=== PATIENT | female | born 1995 | race Caucasian/White ===

== ENCOUNTER 2019-06-18 17:26 | Emergency (ER) | payer SELFPAY ==
--- NOTE | 2019-06-18 18:13 | EDM.PDOC ---
ED HPI GENERAL MEDICAL PROBLEM - General Chief Complaint: PARTS CATALOGUER Problem Stated Complaint: 12WEEKS CRAMP Time Seen by Provider: 06/18/19 17:48 Source of Information: Reports: Patient History Limitations: Reports: No Limitations - History of Present Illness INITIAL COMMENTS - FREE TEXT/NARRATIVE: HISTORY AND PHYSICAL: History of present illness: Patient is a 24-year-old female presents to the ED today with concern of lower abdominal pain and . Patient states she is approximately 11-12 weeks along. Patient states she just moved here and does not have an PARTS CATALOGUER established. Patient states she did have an ultrasound early on in with confirmed intrauterine . Patient states she was lifting boxes today and began to have lower abdominal pain/cramping. Patient denies any vaginal bleeding. Patient denies any direct trauma or injury. Patient denies fever, chills, chest pain, shortness of breath, or cough. Denies headache, neck stiff ness, change in vision, syncope, or near syncope. Denies nausea, vomiting, diarrhea, constipation, or dysuria. Has not noted any blood in urine or stool. Patient has been eating and drinking appropriately. Review of systems: As per history of present illness and below otherwise all systems reviewed and negative. Past medical history: As per history of present illness and as reviewed below otherwise noncontributory. Surgical history: As per history of present illness and as reviewed below otherwise noncontributory. Social history: See social history for further information Family history: As per history of present illness and as reviewed below otherwise noncontributory. Physical exam: General: Patient is alert, oriented, and in no acute distress. Patient sitting comfortably on exam table. HEENT: Atraumatic, normocephalic, pupils equal and reactive bilaterally, negative for conjunctival pallor or scleral icterus, mucous membranes moist, TMs normal bilaterally, throat clear, neck supple, nontender, trachea midline. No drooling or trismus noted. No meningeal signs. No hot potato voice noted. Lungs: Clear to auscultation, breath sounds equal bilaterally, chest nontender. Heart: S1S2, regular rate and rhythm without overt murmur Abdomen: Soft, nondistended. Mild suprapubic tenderness. Negative for masses or hepatosplenomegaly. Negative for costovertebral tenderness. Pelvis: Stable nontender. Genitourinary: Deferred. Rectal: Deferred. Skin: Intact, warm, dry. No lesions or rashes noted. Extremities: Atraumatic, negative for cords or calf pain. Neurovascular unremarkable. Neuro: Awake, alert, oriented. Cranial nerves II through XII unremarkable. Cerebellum unremarkable. Motor and sensory unremarkable throughout. Exam nonfocal. Notes: Blood type A negative. Patient continues to deny vaginal bleeding. Discussed the importance for follow-up with an PARTS CATALOGUER provider. Voices understanding and is agreeable to plan of care. Denies any further questions or concerns at this time. Diagnostics: CBC, CMP, UA, hCG, blood type, TVUS Therapeutics: None Prescription: None Impression: Lower abdominal pain and Plan: 1. Please start and/or continue to take your vitamin with folic acid once daily. 2. Tylenol as needed for pain management. This is safe to use in . 3. Follow up with your PARTS CATALOGUER as discussed. Return to the ED as needed and as discussed. Definitive disposition and diagnosis as appropriate pending reevaluation and review of above. Lower Abdomen Pain Score (Numeric/FACES): 4 - Related Data Allergies Allergy/AdvReac Type Severity Reaction Status Date / Time No Known Allergies Allergy Verified 06/18/19 17:42 Home Meds: Home Meds Pnv No.95/Ferrous Fum/Folic AC [ Caplet] 1 each PO DAILY 06/18/19 [ History] Past Medical History HEENT History: Reports: None Cardiovascular History: Reports: None Respiratory History: Reports: None Gastrointestinal History: Reports: None Genitourinary History: Reports: None PARTS CATALOGUER History: Reports: Musculoskeletal History: Reports: None Neurological History: Reports: None Psychiatric History: Reports: Anxiety Endocrine/Metabolic History: Reports: None Hematologic History: Reports: None Immunologic History: Reports: None Oncologic (Cancer) History: Reports: None Dermatologic History: Reports: None - Infectious Disease History Infectious Disease History: Reports: None - Past Surgical History Head Surgeries/Procedures: Reports: None Social & Family History - Tobacco Use Smoking Status *Q: Former Smoker Used Tobacco, but Quit: Yes Month/Year Tobacco Last Used: 2018 - Caffeine Use Caffeine Use: Reports: None - Recreational Drug Use Recreational Drug Use: No ED ROS GENERAL - Review of Systems Review Of Systems: ROS reveals no pertinent complaints other than HPI. ED EXAM, GENERAL - Physical Exam Exam: See Below (see dictation) Course - Vital Signs Last Recorded V/S: Last Vital Signs Temp 37.1 C 06/18/19 17:39 Pulse 83 06/18/19 17:39 Resp BP 107/62 06/18/19 17:39 Pulse Ox 97 06/18/19 17:39 - Orders/Labs/Meds Labs: Laboratory Tests 06/18/19 06/18/19 06/18/19 Range/Units 17:58 17:58 17:58 WBC 11.52 H (4.0-11.0) K/uL RBC 4.01 L (4.30-5.90) M/uL Hgb 12.8 (12.0-16.0) g/dL Hct 37.5 (36.0-46.0) % MCV 93.5 (80.0-98.0) fL MCH 31.9 (27.0-32.0) pg MCHC 34.1 (31.0-37.0) g/dL RDW Std Deviation 41.3 (28.0-62.0) fl RDW Coeff of Robin 12 (11.0-15.0) % Plt Count 249 (150-400) K/uL MPV 9.20 (7.40-12.00) fL Neut % (Auto) 80.4 H (48.0-80.0) % Lymph % (Auto) 13.8 L (16.0-40.0) % Garrett % (Auto) 5.0 (0.0-15.0) % Eos % (Auto) 0.7 (0.0-7.0) % Baso % (Auto) 0.1 (0.0-1.5) % Neut # (Auto) 9.3 H (1.4-5.7) K/uL Lymph # (Auto) 1.6 (0.6-2.4) K/uL Garrett # (Auto) 0.6 (0.0-0.8) K/uL Eos # (Auto) 0.1 (0.0-0.7) K/uL Baso # (Auto) 0.0 (0.0-0.1) K/uL Nucleated RBC % 0.0 /100WBC Nucleated RBCs # 0 K/uL Sodium 138 (136-145) mmol/L Potassium 3.9 (3.5-5.1) mmol/L Chloride 102 (98-107) mmol/L Carbon Dioxide 27.2 (21.0-32.0) mmol/L BUN 10 (7.0-18.0) mg/dL Creatinine 0.6 (0.6-1.0) mg/dL Est Cr Clr Drug Dosing TNP Estimated GFR (MDRD) > 60.0 ml/min Glucose 96 (74-106) mg/dL Calcium 9.2 (8.5-10.1) mg/dL Total Bilirubin 0.2 (0.2-1.0) mg/dL AST 14 L (15-37) IU/L ALT 22 (14-63) IU/L Alkaline Phosphatase 29 L (46-116) U/L Total Protein 6.6 (6.4-8.2) g/dL Albumin 3.3 L (3.4-5.0) g/dL Globulin 3.3 (2.6-4.0) g/dL Albumin/Globulin Ratio 1.0 (0.9-1.6) HCG, Qual (NEG) HCG, Quant 448966.0 mIU/mL Urine Color Urine Appearance Urine pH (5.0-8.0) Ur Specific Crouse (1.001-1.035) Urine Protein (NEGATIVE) mg/dL Urine Glucose (UA) (NEGATIVE) mg/dL Urine Ketones (NEGATIVE) mg/dL Urine Occult Blood (NEGATIVE) Urine Nitrite (NEGATIVE) Urine Bilirubin (NEGATIVE) Urine Urobilinogen (<2.0) EU/dL Ur Leukocyte Esterase (NEGATIVE) Blood Type A NEGATIVE 06/18/19 06/18/19 Range/Units 17:58 19:35 WBC (4.0-11.0) K/uL RBC (4.30-5.90) M/uL Hgb (12.0-16.0) g/dL Hct (36.0-46.0) % MCV (80.0-98.0) fL MCH (27.0-32.0) pg MCHC (31.0-37.0) g/dL RDW Std Deviation (28.0-62.0) fl RDW Coeff of Robin (11.0-15.0) % Plt Count (150-400) K/uL MPV (7.40-12.00) fL Neut % (Auto) (48.0-80.0) % Lymph % (Auto) (16.0-40.0) % Garrett % (Auto) (0.0-15.0) % Eos % (Auto) (0.0-7.0) % Baso % (Auto) (0.0-1.5) % Neut # (Auto) (1.4-5.7) K/uL Lymph # (Auto) (0.6-2.4) K/uL Garrett # (Auto) (0.0-0.8) K/uL Eos # (Auto) (0.0-0.7) K/uL Baso # (Auto) (0.0-0.1) K/uL Nucleated RBC % /100WBC Nucleated RBCs # K/uL Sodium (136-145) mmol/L Potassium (3.5-5.1) mmol/L Chloride (98-107) mmol/L Carbon Dioxide (21.0-32.0) mmol/L BUN (7.0-18.0) mg/dL Creatinine (0.6-1.0) mg/dL Est Cr Clr Drug Dosing Estimated GFR (MDRD) ml/min Glucose (74-106) mg/dL Calcium (8.5-10.1) mg/dL Total Bilirubin (0.2-1.0) mg/dL AST (15-37) IU/L ALT (14-63) IU/L Alkaline Phosphatase (46-116) U/L Total Protein (6.4-8.2) g/dL Albumin (3.4-5.0) g/dL Globulin (2.6-4.0) g/dL Albumin/Globulin Ratio (0.9-1.6) HCG, Qual POSITIVE H (NEG) HCG, Quant mIU/mL Urine Color YELLOW Urine Appearance CLEAR Urine pH 6.5 (5.0-8.0) Ur Specific Crouse 1.015 (1.001-1.035) Urine Protein NEGATIVE (NEGATIVE) mg/dL Urine Glucose (UA) NEGATIVE (NEGATIVE) mg/dL Urine Ketones NEGATIVE (NEGATIVE) mg/dL Urine Occult Blood NEGATIVE (NEGATIVE) Urine Nitrite NEGATIVE (NEGATIVE) Urine Bilirubin NEGATIVE (NEGATIVE) Urine Urobilinogen 0.2 (<2.0) EU/dL Ur Leukocyte Esterase NEGATIVE (NEGATIVE) Blood Type Departure - Departure Time of Disposition: 19:54 Disposition: Home, Self-Care 01 Clinical Impression: Abdominal cramping affecting - Discharge Information Referrals: PCP,None [Primary Care Provider] - Forms: ED Department Discharge Additional Instructions: The following information is given to patients seen in the emergency department who are being discharged to home. This information is to outline your options for follow-up care. We provide all patients seen in our emergency department with a follow-up referral. The need for follow-up, as well as the timing and circumstances, are variable depending upon the specifics of your emergency department visit. If you don't have a primary care physician on staff, we will provide you with a referral. We always advise you to contact your personal physician following an emergency department visit to inform them of the circumstance of the visit and for follow-up with them and/or the need for any referrals to a consulting specialist. The emergency department will also refer you to a specialist when appropriate. This referral assures that you have the opportunity for follow-up care with a specialist. All of these measure are taken in an effort to provide you with optimal care, which includes your follow-up. Under all circumstances we always encourage you to contact your private physician who remains a resource for coordinating your care. When calling for follow-up care, please make the office aware that this follow-up is from your recent emergency room visit. If for any reason you are refused follow-up, please contact the [facility] Emergency Department at and asked to speak to the emergency department charge nurse. [facility] [address] [place] [id number] [facility] [address] [place] [address] [facility] [address] [place] [address] 1. Please start and/or continue to take your vitamin with folic acid once daily. 2. Tylenol as needed for pain management. This is safe to use in . 3. Follow up with your PARTS CATALOGUER as discussed. Return to the ED as needed and as discussed.
[2019-06-18 18:57] LABS: BLOOD UREA NITROGEN,BUN 10 mg/dL (7.0-18.0); CARBON DIOXIDE,CO2 27.2 mmol/L (21.0-32.0); CHLORIDE,CL 102 mmol/L (98-107); GLUCOSE RANDOM 96 mg/dL (74-106); POTASSIUM,K 3.9 mmol/L (3.5-5.1); SODIUM,NA 138 mmol/L (136-145)
--- NOTE | 2019-06-18 19:53 | US ---
INDICATION: low pelvic pain x 2 days pain has lessened denies bleeding OBSTETRICAL ULTRASOUND Technique: Transabdominal scanning of the pelvis was performed. Findings: The uterus contains a gestational sac. The gestational sac contains a yolk sac and an embryonic pole which exhibits cardiac activity with a heart rate of 163 BPM. The crown-rump length corresponds to an estimated menstrual age of 12 weeks 0 days and an DK of 12/31/2019. The ovaries are not visualized. No significant free pelvic fluid is identified. IMPRESSION: Live early intrauterine with estimated menstrual age of 12 weeks 0 days and DK of 12/31/2019. No acute abnormality is seen. JULIETA ESPINOSA MD [facility] Dictated by: Kelvin Espinosa MD @ 06/18/2019 19:51:27 (Electronically Signed)
== END 2019-06-18 19:58 | disposition home or self-care (01) ==
LOC: MW.ED 17:26
DX: O26.891 Other specified pregnancy related conditions, first trimester (principal); R10.33 Periumbilical pain; Z87.891 Personal history of nicotine dependence; Z3A.11 11 weeks gestation of pregnancy
CPT/HCPCS: 36415; 76801; 76801-26; 80053; 81003; 84702; 84703; 85025; 86900; 86901; 99284-25

== ENCOUNTER 2020-01-04 20:00 | Inpatient (IN) | payer MEDICAID ==
[2020-01-04] MEDS ORDERED: Carboprost Tromethamine 250 MCG/1 ML Amp IM PRN (20:25)
[2020-01-04] MEDS ORDERED: Sodium Chloride 0.9% 10 ML SDV IV PRN (20:25)
[2020-01-04] MEDS ORDERED: Sodium Chloride 0.9% 2.5 ML Syringe FLUSH PRN (20:25)
[2020-01-04] MEDS ORDERED: Lidocaine 1% 50 ML MDV INJECT PRN (20:25)
[2020-01-04] MEDS ORDERED: Misoprostol 200 MCG Tab PO PRN (20:25)
[2020-01-04] MEDS ORDERED: Ondansetron 4 MG/2 ML SDV IVPUSH PRN (20:25)
[2020-01-04] MEDS ORDERED: Sodium Chloride 0.9% 10 ML Syringe FLUSH PRN (20:25)
[2020-01-04] MEDS ORDERED: Methylergonovine 0.2 MG/1 ML Amp IM PRN (20:25)
[2020-01-04] MEDS ORDERED: Nalbuphine 10 MG/1 ML Vial IVPUSH PRN (20:25)
[2020-01-04] MEDS ORDERED: Butorphanol 1 MG/ML SDV IVPUSH PRN (20:25)
[2020-01-04] MEDS ORDERED: Tranexamic Acid 1,000 MG in Sodium Chloride 0.9% 100 ML IV PRN (20:25)
[2020-01-04] MEDS ORDERED: Terbutaline 1 MG/ML SDV SUBCUT PRN (20:25)
[2020-01-04] MEDS ORDERED: Water For Irrigation,Sterile 1,000 ML Container IRR PRN (20:25)
[2020-01-04] MEDS ORDERED: Oxytocin/0.9 % Sodium Chloride 30 UNIT/500 ML BAG IV SCH ×2 (20:30)
[2020-01-04] MEDS: Misoprostol 25 MCG (1/4 of 100 MCG) Tab VAG PRN (21:06)
[2020-01-04] MEDS: Misoprostol 25 MCG (1/4 of 100 MCG) Tab PO PRN (21:12)
--- NOTE | 2020-01-04 21:42 | PCM.LDHP ---
L&D History of Present Illness - General Date of Service: 01/04/20 Admit Problem/Dx: Patient Status Order with Admit Dx/Problem 01/04/20 20:20 Patient Status [ADT] Routine Admission Diagnosis/Problem Admission Diagnosis/Problem - planned 01/04/20 21:37 24 yo admit for elective IOL at 40 +0 weeks; A-, Rubella non-immune, GBS negative, SVE 2/70/-3 per nurse report Source of Information: Patient History Limitations: Reports: No Limitations - Related Data Allergies/Adverse Reactions: Allergies Allergy/AdvReac Type Severity Reaction Status Date / Time No Known Allergies Allergy Verified 06/18/19 17:42 Home Medications: Home Meds Pnv No.95/Ferrous Fum/Folic AC [ Caplet] 1 each PO DAILY 06/18/19 [ History] Past Medical History HEENT History: Reports: None Cardiovascular History: Reports: None Respiratory History: Reports: None Gastrointestinal History: Reports: None Genitourinary History: Reports: None 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: Musculoskeletal History: Reports: None Neurological History: Reports: None Psychiatric History: Reports: Anxiety Endocrine/Metabolic History: Reports: None Hematologic History: Reports: None Immunologic History: Reports: None Oncologic (Cancer) History: Reports: None Dermatologic History: Reports: None - Infectious Disease History Infectious Disease History: Reports: None - Past Surgical History Head Surgeries/Procedures: Reports: None Social & Family History - Caffeine Use Caffeine Use: Reports: None H&P Review of Systems - Review of Systems: Review Of Systems: See Below General: Reports: No Symptoms HEENT: Reports: No Symptoms Pulmonary: Reports: No Symptoms Cardiovascular: Reports: No Symptoms Gastrointestinal: Reports: No Symptoms Genitourinary: Reports: No Symptoms Musculoskeletal: Reports: No Symptoms Skin: Reports: No Symptoms Psychiatric: Reports: No Symptoms Neurological: Reports: No Symptoms Hematologic/Lymphatic: Reports: No Symptoms Immunologic: Reports: No Symptoms L&D Exam - Exam Exam: See Below - Vital Signs Weight: 155 lb - OB Specific Fundal Height In cm: 40 Movement: Active Heart Tones: Present Heart Rate (FHR) Variability: Moderate (6-25 bmp) - Rojas Score Rojas Score Consistency: Soft Rojas Score Effacement: 51-70% Rojas Score Dilation: 1-2 cm Rojas Score Infant's Station: -3 - Exam General: Alert, Oriented, Cooperative Lungs: Normal Respiratory Effort GI/Abdominal Exam: Soft, Non-Tender Rectal Exam: Deferred Genitourinary: Deferred Back Exam: Normal Inspection, Full Range of Motion Extremities: Normal Inspection, Normal Range of Motion, Non-Tender Skin: Warm, Dry, Intact Neurological: Normal Gait, Normal Speech, Normal Tone, Sensation Intact Psychiatric: Alert, Normal Affect, Normal Mood - Patient Data Lab Results Last 24 hrs: Laboratory Results - last 24 hr 01/04/20 Range/Units 20:46 WBC 9.70 (4.0-11.0) K/uL RBC 3.75 L (4.30-5.90) M/uL Hgb 11.5 L (12.0-16.0) g/dL Hct 35.0 L (36.0-46.0) % MCV 93.3 (80.0-98.0) fL MCH 30.7 (27.0-32.0) pg MCHC 32.9 (31.0-37.0) g/dL RDW Std Deviation 46.9 (28.0-62.0) fl RDW Coeff of Robin 14 (11.0-15.0) % Plt Count 347 (150-400) K/uL MPV 10.10 (7.40-12.00) fL Nucleated RBC % 0.0 /100WBC Nucleated RBCs # 0 K/uL Result Diagrams: 01/04/20 20:46 - Problem List (1) Supervision of normal IUP (intrauterine ) in primigravida SNOMED Code(s): 52209662, 385569210, 093710656, 878471095 ICD Code: Z34.00 - ENCNTR FOR SUPRVSN OF NORMAL FIRST , UNSP TRIMESTER Status: Acute Priority: High Current Visit: Yes Qualifiers: Trimester: third trimester Qualified Code(s): Z34.03 - Encounter for supervision of normal first , third trimester Problem List Initiated/Reviewed/Updated: Yes Orders Last 24hrs: Active Orders 24 hr Category Date Time Status Patient Status [ADT] Routine ADT 01/04/20 20:20 Active Bedrest Bathroom Privileges [RC] ASDIRECTED Care 01/04/20 20:25 Active Communication Order [RC] ASDIRECTED Care 01/04/20 20:25 Active Communication Order [RC] ASDIRECTED Care 01/04/20 20:25 Active Communication Order [RC] ASDIRECTED Care 01/04/20 20:25 Active Heart Tones [RC] CONTINUOUS Care 01/04/20 20:25 Active Non Stress Test [RC] PER UNIT ROUTINE Care 01/04/20 20:20 Active May Shower [RC] ASDIRECTED Care 01/04/20 20:25 Active Notify Provider [RC] PRN Care 01/04/20 20:25 Active Notify Provider [RC] PRN Care 01/04/20 20:25 Active Notify Provider [RC] PRN Care 01/04/20 20:25 Active Notify Provider [RC] STAT Care 01/04/20 20:25 Active Oxygen Therapy [RC] ASDIRECTED Care 01/04/20 20:25 Active Up ad Yanet [RC] ASDIRECTED Care 01/04/20 20:25 Active Vaginal Exam [RC] PRN Care 01/04/20 20:25 Active Vaginal Exam [RC] PRN Care 01/04/20 20:25 Active Vital Signs [RC] PER UNIT ROUTINE Care 01/04/20 20:25 Active Vital Signs [RC] PER UNIT ROUTINE Care 01/04/20 20:25 Active RPR (SYPHILIS SERO) W/ RFLX [REF] Routine Lab 01/04/20 20:46 Received TYPE AND SCREEN [BBK] Routine Lab 01/04/20 20:46 Received Butorphanol [Stadol] Med 01/04/20 20:25 Active 1 mg IVPUSH Q1H PRN Carboprost Tromethamine [Hemabate DS] Med 01/04/20 20:25 Active 250 mcg IM ASDIRECTED PRN Lactated Ringers [Ringers, Lactated] 1,000 ml Med 01/04/20 20:30 Active IV ASDIRECTED Lidocaine 1% [Xylocaine 1%] Med 01/04/20 20:25 Active 50 ml INJECT ONETIME PRN Methylergonovine [Methergine] Med 01/04/20 20:25 Active 0.2 mg IM ASDIRECTED PRN Nalbuphine [Nubain] Med 01/04/20 20:25 Active 10 mg IVPUSH Q1H PRN Ondansetron [Zofran] Med 01/04/20 20:25 Active 4 mg IVPUSH Q6H PRN Oxytocin/0.9 % Sodium Chloride [Oxytocin 30 Unit/500 ML Med 01/04/20 20:30 Active -NS] 30 unit in 500 ml IV TITRATE Oxytocin/0.9 % Sodium Chloride [Oxytocin 30 Unit/500 ML Med 01/04/20 20:30 Active -NS] 30 unit in 500 ml IV TITRATE Sodium Chloride 0.9% [Normal Saline] Med 01/04/20 20:25 Active 10 ml IV ASDIRECTED PRN Sodium Chloride 0.9% [Saline Flush] Med 01/04/20 20:25 Active 10 ml FLUSH ASDIRECTED PRN Sodium Chloride 0.9% [Saline Flush] Med 01/04/20 20:25 Active 2.5 ml FLUSH ASDIRECTED PRN Terbutaline [Brethine] Med 01/04/20 20:25 Active 0.25 mg SUBCUT ASDIRECTED PRN Tranexamic Acid [Cyklokapron] 1,000 mg Med 01/04/20 20:25 Active Sodium Chloride 0.9% [Normal Saline] 100 ml IV ONETIME Water For Irrigation,Sterile [Sterile Water for Med 01/04/20 20:25 Active Irrigation] 1,000 ml IRR ASDIRECTED PRN miSOPROStoL [Cytotec] Med 01/04/20 20:25 Active 200 mcg PO ONETIME PRN miSOPROStoL [Cytotec] Med 01/04/20 21:00 Active 25 mcg PO Q4H PRN miSOPROStoL [Cytotec] Med 01/04/20 21:00 Active 25 mcg VAG Q4H PRN Scalp Electrode [WOMSER] Per Unit Routine Oth 01/04/20 20:25 Ordered Medication Administration Instruction [OM.PC] Q3H Oth 01/04/20 20:30 Ordered Peripheral IV Insertion Adult [OM.PC] Routine Oth 01/04/20 20:25 Ordered Resuscitation Status Routine Resus Stat 01/04/20 20:25 Ordered Medication Orders Butorphanol Tartrate (Stadol) 1 mg IVPUSH Q1H PRN PRN Reason: Pain Carboprost Tromethamine (Hemabate Ds) 250 mcg IM ASDIRECTED PRN PRN Reason: Post Hemorrhage Lactated Ringer's (Ringers, Lactated) 1,000 mls @ 150 mls/hr IV ASDIRECTED SUKHWINDER Oxytocin/Sodium Chloride (Oxytocin 30 Unit/500 Ml-Ns) 30 unit in 500 mls @ 999 mls/hr IV TITRATE SUKHWINDER Oxytocin/Sodium Chloride (Oxytocin 30 Unit/500 Ml-Ns) 30 unit in 500 mls @ 2 mls/hr IV TITRATE SUKHWINDER; Protocol Tranexamic Acid 1,000 mg/ (Sodium Chloride) 110 mls @ 660 mls/hr IV ONETIME PRN PRN Reason: Bleeding Lidocaine HCl (Xylocaine 1%) 50 ml INJECT ONETIME PRN PRN Reason: Laceration repair Methylergonovine Maleate (Methergine) 0.2 mg IM ASDIRECTED PRN PRN Reason: Post Hemorrhage Misoprostol (Cytotec) 200 mcg PO ONETIME PRN PRN Reason: Post Hemorrhage Misoprostol (Cytotec) 25 mcg VAG Q4H PRN PRN Reason: Cervical Ripening Last Admin: 01/04/20 21:06 Dose: 25 mcg Misoprostol (Cytotec) 25 mcg PO Q4H PRN PRN Reason: Cervical Ripening Last Admin: 01/04/20 21:12 Dose: 25 mcg Nalbuphine HCl (Nubain) 10 mg IVPUSH Q1H PRN PRN Reason: Pain (severe 7-10) Ondansetron HCl (Zofran) 4 mg IVPUSH Q6H PRN PRN Reason: Nausea/Vomiting Sodium Chloride (Saline Flush) 10 ml FLUSH ASDIRECTED PRN PRN Reason: Keep Vein Open Sodium Chloride (Saline Flush) 2.5 ml FLUSH ASDIRECTED PRN PRN Reason: Keep Vein Open Sodium Chloride (Normal Saline) 10 ml IV ASDIRECTED PRN PRN Reason: IV Use Sterile Water (Sterile Water For Irrigation) 1,000 ml IRR ASDIRECTED PRN PRN Reason: delivery Terbutaline Sulfate (Brethine) 0.25 mg SUBCUT ASDIRECTED PRN PRN Reason: Tacysystole Assessment/Plan Comment:: IOL A: 24 yo admit for elective IOL at 40 +0 weeks; A-, Rubella non-immune, GBS negative, SVE 2/70/-3 per nurse report P: Admit, induction of labor, anticipate , Dr. Tanner pastor
[2020-01-05] MEDS: Misoprostol 25 MCG (1/4 of 100 MCG) Tab PO PRN ×3 (01:30→10:37)
[2020-01-05] MEDS: Misoprostol 25 MCG (1/4 of 100 MCG) Tab VAG PRN ×3 (01:31→10:37)
[2020-01-05] MEDS: Lactated Ringers 1,000 ML IV SCH ×2 (19:08→22:25)
[2020-01-05] MEDS ORDERED: fentaNYL 100 MCG/2 ML SDV ONE (21:06)
[2020-01-05] MEDS ORDERED: Bupivicaine/fentaNYL/NS 250 ML ONE (21:06)
--- NOTE | 2020-01-05 21:26 | PCM.PREANE ---
Preanesthetic Assessment - Anesthesia/Transfusion/Family Hx Anesthesia History: No Prior Anesthesia Family History of Anesthesia Reaction: No Transfusion History: No Prior Transfusion(s) Intubation History: Unknown - Review of Systems General: No Symptoms Pulmonary: No Symptoms Cardiovascular: No Symptoms Gastrointestinal: Abdominal Pain (labor pain) Neurological: No Symptoms Other: Reports: None - Physical Assessment Height: 5 ft 2 in Weight: 70.307 kg ASA Class: 2 Mental Status: Alert & Oriented x3 Airway Class: Mallampati = 2 Dentition: Reports: Normal Dentition Thyro-Mental Finger Breadths: 3 Mouth Opening Finger Breadths: 3 ROM/Head Extension: Full Lungs: Clear to Auscultation, Normal Respiratory Effort Cardiovascular: Regular Rate, Regular Rhythm - Lab Values: Laboratory Last Values WBC 9.70 K/uL (4.0-11.0) 01/04/20 20:46 RBC 3.75 M/uL (4.30-5.90) L 01/04/20 20:46 Hgb 11.5 g/dL (12.0-16.0) L 01/04/20 20:46 Hct 35.0 % (36.0-46.0) L 01/04/20 20:46 MCV 93.3 fL (80.0-98.0) 01/04/20 20:46 MCH 30.7 pg (27.0-32.0) 01/04/20 20:46 MCHC 32.9 g/dL (31.0-37.0) 01/04/20 20:46 RDW Std Deviation 46.9 fl (28.0-62.0) 01/04/20 20:46 RDW Coeff of [place] 14 % (11.0-15.0) 01/04/20 20:46 Plt Count 347 K/uL (150-400) 01/04/20 20:46 MPV 10.10 fL (7.40-12.00) 01/04/20 20:46 Nucleated RBC % 0.0 /100WBC 01/04/20 20:46 Nucleated RBCs # 0 K/uL 01/04/20 20:46 Blood Type A NEGATIVE 01/04/20 20:46 Antibody Screen NEGATIVE 01/04/20 20:46 - Allergies Allergies/Adverse Reactions: Allergies Allergy/AdvReac Type Severity Reaction Status Date / Time No Known Allergies Allergy Verified 06/18/19 17:42 - Blood Blood Available: No - Anesthesia Plan Pre-Op Medication Ordered: None - Acknowledgements Anesthesia Type Planned: Epidural Pt an Appropriate Candidate for the Planned Anesthesia: Yes Alternatives and Risks of Anesthesia Discussed w Pt/Guardian: Yes Pt/Guardian Understands and Agrees with Anesthesia Plan: Yes PreAnesthesia Questionnaire HEENT History: Reports: None Cardiovascular History: Reports: None Respiratory History: Reports: None Gastrointestinal History: Reports: None Genitourinary History: Reports: None COLLATERAL CLERK History: Reports: Musculoskeletal History: Reports: None Neurological History: Reports: None Psychiatric History: Reports: Anxiety Endocrine/Metabolic History: Reports: None Hematologic History: Reports: None Immunologic History: Reports: None Oncologic (Cancer) History: Reports: None Dermatologic History: Reports: None - Infectious Disease History Infectious Disease History: Reports: None - Past Surgical History Head Surgeries/Procedures: Reports: None - SUBSTANCE USE Smoking Status *Q: Never Smoker Tobacco Use Within Last Twelve Months: No Second Hand Smoke Exposure: No Recreational Drug Use History: No - HOME MEDS Home Medications: Home Meds Pnv No.95/Ferrous Fum/Folic AC [ Caplet] 1 each PO DAILY 06/18/19 [ History] - CURRENT (IN HOUSE) MEDS Current Meds: Current Medications Butorphanol Tartrate (Stadol) 1 mg IVPUSH Q1H PRN PRN Reason: Pain Last Admin: 01/05/20 19:04 Dose: 1 mg Carboprost Tromethamine (Hemabate Ds) 250 mcg IM ASDIRECTED PRN PRN Reason: Post Hemorrhage Lactated Ringer's (Ringers, Lactated) 1,000 mls @ 150 mls/hr IV ASDIRECTED SUKHWINDER Last Admin: 01/05/20 19:08 Dose: 999 mls/hr Oxytocin/Sodium Chloride (Oxytocin 30 Unit/500 Ml-Ns) 30 unit in 500 mls @ 999 mls/hr IV TITRATE SUKHWINDER Oxytocin/Sodium Chloride (Oxytocin 30 Unit/500 Ml-Ns) 30 unit in 500 mls @ 2 mls/hr IV TITRATE SUKHWINDER; Protocol Tranexamic Acid 1,000 mg/ (Sodium Chloride) 110 mls @ 660 mls/hr IV ONETIME PRN PRN Reason: Bleeding Lidocaine HCl (Xylocaine 1%) 50 ml INJECT ONETIME PRN PRN Reason: Laceration repair Methylergonovine Maleate (Methergine) 0.2 mg IM ASDIRECTED PRN PRN Reason: Post Hemorrhage Misoprostol (Cytotec) 200 mcg PO ONETIME PRN PRN Reason: Post Hemorrhage Misoprostol (Cytotec) 25 mcg VAG Q4H PRN PRN Reason: Cervical Ripening Last Admin: 01/05/20 10:37 Dose: 25 mcg Misoprostol (Cytotec) 25 mcg PO Q4H PRN PRN Reason: Cervical Ripening Last Admin: 01/05/20 10:37 Dose: 25 mcg Nalbuphine HCl (Nubain) 10 mg IVPUSH Q1H PRN PRN Reason: Pain (severe 7-10) Ondansetron HCl (Zofran) 4 mg IVPUSH Q6H PRN PRN Reason: Nausea/Vomiting Sodium Chloride (Saline Flush) 10 ml FLUSH ASDIRECTED PRN PRN Reason: Keep Vein Open Sodium Chloride (Saline Flush) 2.5 ml FLUSH ASDIRECTED PRN PRN Reason: Keep Vein Open Sodium Chloride (Normal Saline) 10 ml IV ASDIRECTED PRN PRN Reason: IV Use Sterile Water (Sterile Water For Irrigation) 1,000 ml IRR ASDIRECTED PRN PRN Reason: delivery Terbutaline Sulfate (Brethine) 0.25 mg SUBCUT ASDIRECTED PRN PRN Reason: Tacysystole Discontinued Medications Fentanyl (Sublimaze) Confirm Administered Dose 100 mcg .ROUTE .STK-MED ONE Stop: 01/05/20 21:07 Fentanyl/Bupivacaine HCl (Fentanyl/Bupivacaine/Ns 2 Mcg-0.125% 250 Ml) Confirm Administered Dose 250 mls @ as directed .ROUTE .STK-MED ONE Stop: 01/05/20 21:07
[2020-01-06] MEDS: Lactated Ringers 1,000 ML IV SCH (02:21)
--- NOTE | 2020-01-06 09:05 | PCM.DEL ---
L & D Note - General Info Date of Service: 01/06/20 Mother's Due Date: 01/04/20 - Delivery Note Labor: Augmented by ARM, Augmented by Oxytocin Cervical Ripening Method: Misoprostil Delivery Outcome: Livebirth Delivery Method: Spontaneous Vaginal Delivery-Single Infant Delivery Mode: Spontaneous Nuchal Cord: Present (x1 summersaulted through) Anesthesia Type: Epidural Amniotic Fluid Description: Meconium Stained (Light meconium) Episiotomy Type: None Laceration: None Placenta: Intact, Spontaneous Cord: 3 Vessels Estimated Blood Loss: 300 Resuscitation Needed: No : Stimulated, Warmed Score 1 min: 8 Score 5 min: 9 Second Stage Interventions: Reports: Second Nurse Assessed Progress of Descent, Second Nurse Reviewed Contraction Pattern, Second Nurse Reviewed Heart Tones, Encouragement Given, Pushing Effectively, Pushing, Pulls Own Legs Back Delivery Comments (Free Text/Narrative):: viable male; light meconium, head delivered with good pushing, nuchal x1, summersaulted through; shoulders and body followed easily after. Cord clamped immediately and cut by FOB. Baby to warmer for assessment. Placenta delivered grossly intact, EBL 300 mL, 3VC. Perineum intact. Pitocin to IVF. APGARs 8/9 , weight pending. Baby back to mom's abdomen [id number] with nurse at bedside for assessment. - General Info Date of Service: 01/06/20 Admission Dx/Problem (Free Text): Patient Status Order with Admit Dx/Problem 01/04/20 20:20 Patient Status [ADT] Routine Admission Diagnosis/Problem Admission Diagnosis/Problem - planned 01/04/20 21:37 24 yo admit for elective IOL at 40 +0 weeks; A-, Rubella non-immune, GBS negative, SVE 2/70/-3 per nurse report Functional Status: Reports: Pain Controlled - Review of Systems General: Reports: No Symptoms HEENT: Reports: No Symptoms Pulmonary: Reports: No Symptoms Cardiovascular: Reports: No Symptoms Gastrointestinal: Reports: No Symptoms Genitourinary: Reports: No Symptoms Musculoskeletal: Reports: No Symptoms Skin: Reports: No Symptoms Neurological: Reports: No Symptoms Psychiatric: Reports: No Symptoms - Patient Data Weight - Most Recent: 155 lb Med Orders - Current: Current Medications Butorphanol Tartrate (Stadol) 1 mg IVPUSH Q1H PRN PRN Reason: Pain Last Admin: 01/05/20 19:04 Dose: 1 mg Carboprost Tromethamine (Hemabate Ds) 250 mcg IM ASDIRECTED PRN PRN Reason: Post Hemorrhage Lactated Ringer's (Ringers, Lactated) 1,000 mls @ 150 mls/hr IV ASDIRECTED SUKHWINDER Last Admin: 01/06/20 02:21 Dose: 150 mls/hr Oxytocin/Sodium Chloride (Oxytocin 30 Unit/500 Ml-Ns) 30 unit in 500 mls @ 999 mls/hr IV TITRATE SUKHWINDER Oxytocin/Sodium Chloride (Oxytocin 30 Unit/500 Ml-Ns) 30 unit in 500 mls @ 2 mls/hr IV TITRATE SUKHWINDER; Protocol Last Titration: 01/06/20 04:14 Dose: 10 munits/min, 10 mls/hr Tranexamic Acid 1,000 mg/ (Sodium Chloride) 110 mls @ 660 mls/hr IV ONETIME PRN PRN Reason: Bleeding Lidocaine HCl (Xylocaine 1%) 50 ml INJECT ONETIME PRN PRN Reason: Laceration repair Methylergonovine Maleate (Methergine) 0.2 mg IM ASDIRECTED PRN PRN Reason: Post Hemorrhage Misoprostol (Cytotec) 200 mcg PO ONETIME PRN PRN Reason: Post Hemorrhage Misoprostol (Cytotec) 25 mcg VAG Q4H PRN PRN Reason: Cervical Ripening Last Admin: 01/05/20 10:37 Dose: 25 mcg Misoprostol (Cytotec) 25 mcg PO Q4H PRN PRN Reason: Cervical Ripening Last Admin: 01/05/20 10:37 Dose: 25 mcg Nalbuphine HCl (Nubain) 10 mg IVPUSH Q1H PRN PRN Reason: Pain (severe 7-10) Ondansetron HCl (Zofran) 4 mg IVPUSH Q6H PRN PRN Reason: Nausea/Vomiting Sodium Chloride (Saline Flush) 10 ml FLUSH ASDIRECTED PRN PRN Reason: Keep Vein Open Sodium Chloride (Saline Flush) 2.5 ml FLUSH ASDIRECTED PRN PRN Reason: Keep Vein Open Sodium Chloride (Normal Saline) 10 ml IV ASDIRECTED PRN PRN Reason: IV Use Sterile Water (Sterile Water For Irrigation) 1,000 ml IRR ASDIRECTED PRN PRN Reason: delivery Terbutaline Sulfate (Brethine) 0.25 mg SUBCUT ASDIRECTED PRN PRN Reason: Tacysystole Discontinued Medications Fentanyl (Sublimaze) Confirm Administered Dose 100 mcg .ROUTE .STK-MED ONE Stop: 01/05/20 21:07 Fentanyl/Bupivacaine HCl (Fentanyl/Bupivacaine/Ns 2 Mcg-0.125% 250 Ml) Confirm Administered Dose 250 mls @ as directed .ROUTE .STK-MED ONE Stop: 01/05/20 21:07 - Exam General: Alert, Oriented, Cooperative, No Acute Distress Lungs: Normal Respiratory Effort GI/Abdominal Exam: Soft, Non-Tender (Female) Exam: Normal External Exam Back Exam: Normal Inspection Extremities: Normal Inspection, Normal Capillary Refill Skin: Warm, Dry, Intact Neurological: No New Focal Deficit, Normal Speech Psy/Mental Status: Alert, Normal Affect, Normal Mood - Problem List & Annotations (1) Supervision of normal IUP (intrauterine ) in primigravida SNOMED Code(s): 96852790, 219971722, 882575678, 982581394 Code(s): Z34.00 - ENCNTR FOR SUPRVSN OF NORMAL FIRST , UNSP TRIMESTER Status: Acute Priority: High Current Visit: Yes Qualifiers: Trimester: third trimester Qualified Code(s): Z34.03 - Encounter for supervision of normal first , third trimester (2) Normal vaginal delivery SNOMED Code(s): 31856574, 981903904 Code(s): O80 - ENCOUNTER FOR FULL-TERM UNCOMPLICATED DELIVERY Status: Acute Priority: High Current Visit: Yes - Problem List Review Problem List Initiated/Reviewed/Updated: Yes - Plan Plan:: IOL A: 24 yo admit for elective IOL at 40 +0 weeks; A-, Rubella non-immune, GBS negative, SVE 2/70/-3 per nurse report P: Admit, induction of labor, anticipate , Dr. Hart updated Admit A: viable male, APGARs 8/9, weight pending. Placenta delivered grossly intact, 3VC, EBL 300 mL. Intact perineum. Fundus firm. P: Routine plan of care. Dr. Hart updated.
[2020-01-06] MEDS ORDERED: Benzocaine/Menthol 20%-0.5% Spray 78 GM Cannister TOP PRN (09:10)
[2020-01-06] MEDS ORDERED: oxyCODONE 5 MG Tab PO PRN (09:10)
[2020-01-06] MEDS ORDERED: Docusate Sodium 100 MG Cap PO PRN (09:10)
[2020-01-06] MEDS ORDERED: Acetaminophen 500 MG Tab PO PRN (09:10)
[2020-01-06] MEDS ORDERED: Witch Hazel Medicated Pads 40/Jar TOP PRN (09:10)
[2020-01-06] MEDS ORDERED: Ibuprofen 400 MG Tab PO PRN (09:10)
[2020-01-06] MEDS ORDERED: Bisacodyl 10 MG Supp RECTAL PRN (09:10)
[2020-01-06] MEDS ORDERED: Lanolin 100% Cream 7 GM Tube TOP PRN (09:10)
[2020-01-06] MEDS: Ibuprofen 800 MG Tab PO PRN ×2 (12:10→20:18)
[2020-01-06] MEDS: Acetaminophen 500 MG Tab PO PRN (22:14)
--- NOTE | 2020-01-07 09:41 | PCM.PNPP ---
- General Info Date of Service: 01/07/20 Functional Status: Reports: Pain Controlled - Review of Systems General: Reports: No Symptoms HEENT: Reports: No Symptoms Pulmonary: Reports: No Symptoms Cardiovascular: Reports: No Symptoms Gastrointestinal: Reports: No Symptoms Genitourinary: Reports: No Symptoms Musculoskeletal: Reports: No Symptoms Skin: Reports: No Symptoms Neurological: Reports: No Symptoms Psychiatric: Reports: No Symptoms - General Info Date of Service: 01/07/20 - Patient Data Vital Signs - Most Recent: Last Vital Signs Temp 36.1 C 01/07/20 04:00 Pulse 61 01/07/20 04:00 Resp 16 01/07/20 04:00 BP 101/64 01/07/20 04:00 Pulse Ox 100 01/07/20 04:00 Weight - Most Recent: 70.307 kg Lab Results - Last 24 Hours: Laboratory Results - last 24 hr 01/06/20 01/07/20 Range/Units 10:32 05:58 Hgb 9.9 L (12.0-16.0) g/dL Hct 29.6 L (36.0-46.0) % Antibody Screen NEGATIVE Screen NEGATIVE (NEGATIVE) RhIG Candidate? YES Rhogam Indicated YES, BABY RH POS H Med Orders - Current: Current Medications Acetaminophen (Tylenol Extra Strength) 500 mg PO Q4H PRN PRN Reason: Pain Acetaminophen (Tylenol Extra Strength) 1,000 mg PO Q4H PRN PRN Reason: Pain Last Admin: 01/06/20 22:14 Dose: 1,000 mg Benzocaine/Menthol (Dermoplast Pain Relief 20%-0.5% [place]) 78 gm TOP ASDIRECTED PRN PRN Reason: Perineal Comfort Measure Last Admin: 01/06/20 12:23 Dose: 1 can Bisacodyl (Dulcolax) 10 mg RECTAL ONETIME PRN PRN Reason: Constipation Docusate Sodium (Colace) 100 mg PO BID PRN PRN Reason: Constipation Emollient Ointment (Lansinoh Hpa) 0 gm TOP ASDIRECTED PRN PRN Reason: Sore Nipples Ibuprofen (Motrin) 400 mg PO Q4H PRN PRN Reason: Pain Ibuprofen (Motrin) 800 mg PO Q6H PRN PRN Reason: Pain Last Admin: 01/06/20 20:18 Dose: 800 mg Oxycodone HCl (Oxycodone) 5 mg PO Q2H PRN PRN Reason: Pain Last Admin: 01/06/20 22:14 Dose: 5 mg [place] (Tucks) 1 pad TOP ASDIRECTED PRN PRN Reason: comfort care Last Admin: 01/06/20 12:24 Dose: 1 tub Discontinued Medications Butorphanol Tartrate (Stadol) 1 mg IVPUSH Q1H PRN PRN Reason: Pain Last Admin: 01/05/20 19:04 Dose: 1 mg Carboprost Tromethamine (Hemabate Ds) 250 mcg IM ASDIRECTED PRN PRN Reason: Post Hemorrhage Fentanyl (Sublimaze) Confirm Administered Dose 100 mcg .ROUTE .Hemosphere ONE Stop: 01/05/20 21:07 Lactated Ringer's (Ringers, Lactated) 1,000 mls @ 150 mls/hr IV ASDIRECTED SUKHWINDER Last Admin: 01/06/20 02:21 Dose: 150 mls/hr Oxytocin/Sodium Chloride (Oxytocin 30 Unit/500 Ml-Ns) 30 unit in 500 mls @ 999 mls/hr IV TITRATE SUKHWINDER Oxytocin/Sodium Chloride (Oxytocin 30 Unit/500 Ml-Ns) 30 unit in 500 mls @ 2 mls/hr IV TITRATE SUKHWINDER; Protocol Last Titration: 01/06/20 04:14 Dose: 10 munits/min, 10 mls/hr Tranexamic Acid 1,000 mg/ (Sodium Chloride) 110 mls @ 660 mls/hr IV ONETIME PRN PRN Reason: Bleeding Fentanyl/Bupivacaine HCl (Fentanyl/Bupivacaine/Ns 2 Mcg-0.125% 250 Ml) Confirm Administered Dose 250 mls @ as directed .ROUTE .Hemosphere ONE Stop: 01/05/20 21:07 Lidocaine HCl (Xylocaine 1%) 50 ml INJECT ONETIME PRN PRN Reason: Laceration repair Methylergonovine Maleate (Methergine) 0.2 mg IM ASDIRECTED PRN PRN Reason: Post Hemorrhage Misoprostol (Cytotec) 200 mcg PO ONETIME PRN PRN Reason: Post Hemorrhage Misoprostol (Cytotec) 25 mcg VAG Q4H PRN PRN Reason: Cervical Ripening Last Admin: 01/05/20 10:37 Dose: 25 mcg Misoprostol (Cytotec) 25 mcg PO Q4H PRN PRN Reason: Cervical Ripening Last Admin: 01/05/20 10:37 Dose: 25 mcg Nalbuphine HCl (Nubain) 10 mg IVPUSH Q1H PRN PRN Reason: Pain (severe 7-10) Ondansetron HCl (Zofran) 4 mg IVPUSH Q6H PRN PRN Reason: Nausea/Vomiting Sodium Chloride (Saline Flush) 10 ml FLUSH ASDIRECTED PRN PRN Reason: Keep Vein Open Sodium Chloride (Saline Flush) 2.5 ml FLUSH ASDIRECTED PRN PRN Reason: Keep Vein Open Sodium Chloride (Normal Saline) 10 ml IV ASDIRECTED PRN PRN Reason: IV Use Sterile Water (Sterile Water For Irrigation) 1,000 ml IRR ASDIRECTED PRN PRN Reason: delivery Terbutaline Sulfate (Brethine) 0.25 mg SUBCUT ASDIRECTED PRN PRN Reason: Tacysystole - Interaction Disposition, : [place] in Room with Family Infant Interaction: Unable to Hold at this Time Infant Feeding: Attempted ; Nursed Fair/Poor Support Person: Significant Other - Recovery Exam Fundal Tone: Firm Fundal Level: 1 Fingerbreadths Below Umbilicus Fundal Placement: Midline Lochia Amount: Small Lochia Color: Rubra/Red Perineum Description: Intact, Minimal Bruising/Swelling Episiotomy/Laceration: None Bladder Status: Voiding Urinary Elimination: Voided - Exam General: Alert, Oriented HEENT: Pupils Equal Neck: Supple Lungs: Clear to Auscultation, Normal Respiratory Effort Cardiovascular: Regular Rate, Regular Rhythm GI/Abdominal Exam: Normal Bowel Sounds, Soft, Non-Tender, No Organomegaly, No Distention, No Abnormal Bruit, No Mass, Pelvis Stable Extremities: Normal Inspection, Normal Range of Motion, Non-Tender, No Pedal Edema, Normal Capillary Refill Skin: Warm, Dry, Intact Wound/Incisions: Healing Well Neurological: No New Focal Deficit Psy/Mental Status: Alert, Normal Affect, Normal Mood - Problem List Review Problem List Initiated/Reviewed/Updated: Yes - My Orders Last 24 Hours: My Active Orders 01/06/20 10:32 ANTIBODY SCREEN (FIORDALIZA) [BBK] Routine SCREEN [BBK] Routine RH IMMUNE GLOBULIN [BBK] Routine RHOGAM, [RHIG WORKUP, ] [BBK] Routine - Assessment Assessment:: Status post normal spontaneous vaginal delivery patient is doing well she will be sent home today - Plan Plan:: IOL A: 24 yo admit for elective IOL at 40 +0 weeks; A-, Rubella non-immune, GBS negative, SVE 2/-3 per nurse report P: Admit, induction of labor, anticipate , Dr. Hart updated Admit A: viable male, APGARs 8/9, weight pending. Placenta delivered grossly intact, 3VC, EBL 300 mL. Intact perineum. Fundus firm. P: Routine plan of care. Dr. Hart updated.
[2020-01-07] MEDS: Ibuprofen 800 MG Tab PO PRN (10:14)
[2020-01-07] MEDS: Acetaminophen 500 MG Tab PO PRN (11:26)
== END 2020-01-07 12:32 | disposition home or self-care (01) | DRG 807 ==
LOC: MW.OBCHECK 20:00 → MW.OB 20:07 → MW.OBCHECK 20:25 → MW.OB 20:25 → OBSVTOIN 01-06 08:41 → MW.OB 01-06 12:00
PROVIDERS: ADMIT Obstetrics & Gynecology; ATTEND Obstetrics & Gynecology
PROC: 10E0XZZ Delivery of Products of Conception, External Approach (ICD-10-PCS; principal; 2020-01-06)
PROC: 10907ZC Drainage of Amniotic Fluid, Therapeutic from Products of Conception, Via Natural or Artificial Opening (ICD-10-PCS; 2020-01-06)
PROC: 3E0P7VZ Introduction of Hormone into Female Reproductive, Via Natural or Artificial Opening (ICD-10-PCS; 2020-01-06)
PROC: 3E0R3BZ Introduction of Anesthetic Agent into Spinal Canal, Percutaneous Approach (ICD-10-PCS; 2020-01-06)
DX: O48.0 Post-term pregnancy (principal); Z37.0 Single live birth; Z3A.40 40 weeks gestation of pregnancy; O69.81X0 Labor and delivery complicated by cord around neck, without compression, not applicable or unspecified; O77.0 Labor and delivery complicated by meconium in amniotic fluid
CPT/HCPCS: 01967; 36415; 51702; 59025; 59409; 85014; 85018; 85027; 85460; 86592; 86593; 86850; 86900; 86901; A9270-GY; J0595; J2590; J2792; J7120

== ENCOUNTER 2021-07-25 05:00 | Inpatient (IN) | payer MEDICAID ==
[2021-07-25] MEDS ORDERED: Misoprostol 25 MCG (1/4 of 100 MCG) Tab VAG PRN (05:44)
[2021-07-25] MEDS ORDERED: Sodium Chloride 0.9% 2.5 ML Syringe FLUSH PRN (05:44)
[2021-07-25] MEDS ORDERED: Carboprost Tromethamine 250 MCG/1 ML Amp IM PRN (05:44)
[2021-07-25] MEDS ORDERED: Tranexamic Acid 1,000 MG in Sodium Chloride 0.9% 100 ML IV PRN (05:44)
[2021-07-25] MEDS ORDERED: Butorphanol 1 MG/ML SDV IVPUSH PRN (05:44)
[2021-07-25] MEDS ORDERED: Sodium Chloride 0.9% 10 ML SDV IV PRN (05:44)
[2021-07-25] MEDS ORDERED: hydrOXYzine HCl 25 MG Tab PO PRN (05:44)
[2021-07-25] MEDS ORDERED: Ondansetron 4 MG/2 ML SDV IVPUSH PRN (05:44)
[2021-07-25] MEDS ORDERED: Lidocaine 1% 50 ML MDV INJECT PRN (05:44)
[2021-07-25] MEDS ORDERED: Water For Irrigation,Sterile 1,000 ML Container IRR PRN (05:44)
[2021-07-25] MEDS ORDERED: Terbutaline 1 MG/ML SDV SUBCUT PRN (05:44)
[2021-07-25] MEDS ORDERED: Misoprostol 200 MCG Tab PO PRN (05:44)
[2021-07-25] MEDS ORDERED: Methylergonovine 0.2 MG/1 ML Amp IM PRN (05:44)
[2021-07-25] MEDS ORDERED: Nalbuphine 10 MG/1 ML Vial IVPUSH PRN (05:44)
[2021-07-25] MEDS ORDERED: Acetaminophen 325 MG Tab PO PRN (05:44)
[2021-07-25] MEDS ORDERED: Sodium Chloride 0.9% 10 ML Syringe FLUSH PRN (05:44)
[2021-07-25] MEDS ORDERED: Oxytocin/0.9 % Sodium Chloride 30 UNIT/500 ML BAG IV SCH ×2 (05:45)
[2021-07-25] MEDS ORDERED: Misoprostol 25 MCG (1/4 of 100 MCG) Tab PO SCH (08:00)
--- NOTE | 2021-07-25 12:08 | PCM.LDHP ---
L&D History of Present Illness - General Date of Service: 07/25/21 Admit Problem/Dx: Patient Status Order with Admit Dx/Problem 07/25/21 05:45 Patient Status [ADT] Routine 07/25/21 06:53 Admission Status [Patient Status] [ADT] Routine Admission Diagnosis/Problem Admission Diagnosis/Problem 07/25/21 12:02 Bettie is a 26 yo at 40+2 weeks gestation (DK(LMP) 07/23/2021) that presents today for elective IOL, RBAs including cervical ripening techniques discussed and consents signed in office 07/20/2021 with Imelda Mejia CNM. A neg, Ab screen neg, RI, GBS neg. Prophylactic RhoGam adminiseed 05/07/2021. Reports + FM; denies contractions, LOF, vaginal bleeding at this time. Unremarkable pre malia course. Patient confirmed vertex via SVE, confirms she continues to desire elective IOL. Source of Information: Patient History Limitations: Reports: No Limitations - Related Data Allergies/Adverse Reactions: Allergies Allergy/AdvReac Type Severity Reaction Status Date / Time No Known Allergies Allergy Verified 07/25/21 06:22 Home Medications: Home Meds Pnv No.95/Ferrous Fum/Folic AC [ Caplet] 1 each PO DAILY 06/18/19 [History] Past Medical History - Past Health History Medical/Surgical History: Denies Medical/Surgical History HEENT History: Reports: None Cardiovascular History: Reports: None Respiratory History: Reports: None Gastrointestinal History: Reports: None Genitourinary History: Reports: None EVP [place] History: Reports: , Other (See Below) () : 2 Para: 1 LMP (Approximate): Musculoskeletal History: Reports: None Neurological History: Reports: None Psychiatric History: Reports: Anxiety, Depression Endocrine/Metabolic History: Reports: None Hematologic History: Reports: None Immunologic History: Reports: None Oncologic (Cancer) History: Reports: None Dermatologic History: Reports: None - Infectious Disease History Infectious Disease History: Reports: None - Past Surgical History Head Surgeries/Procedures: Reports: None Social & Family History - Family History Family Medical History: No Pertinent Family History Psychiatric: Reports: Other (See Below) (ETOH abuse) - Caffeine Use Caffeine Use: Reports: None H&P Review of Systems - Review of Systems: Review Of Systems: Comprehensive ROS is negative, except as noted in HPI. General: Reports: No Symptoms HEENT: Reports: No Symptoms Pulmonary: Reports: No Symptoms Cardiovascular: Reports: No Symptoms Gastrointestinal: Reports: No Symptoms Genitourinary: Reports: No Symptoms Musculoskeletal: Reports: No Symptoms Skin: Reports: No Symptoms Psychiatric: Reports: No Symptoms Neurological: Reports: No Symptoms Hematologic/Lymphatic: Reports: No Symptoms Immunologic: Reports: No Symptoms L&D Exam - Exam Exam: See Below - Vital Signs Vital Signs: VSS, afebrile. See flowsheet. Weight: 160 lb - OB Specific Fundal Height In cm: 39 Contraction Duration (sec): 40-120 Contraction Frequency (min): 5-6 Contraction Intensity: Mild to Moderate Movement: Active Heart Tones: Present Heart Tones per Min: 120 Heart Rate (FHR) Variability: Moderate (6-25 bpm) Presentation: Vertex (via SVE) - Rojas Score Rojas Score Cervix Position: Midposition Rojas Score Consistency: Soft Rojas Score Effacement: 31-50% Rojas Score Dilation: 1-2 cm Rojas Score Infant's Station: -3 Rojas Score Total: 5 - Exam General: Alert, Oriented, Cooperative HEENT: Conjunctiva Clear, Hearing Intact, Mucosa Moist & [place], PERRLA Neck: Supple, Trachea Midline Lungs: Clear to Auscultation, Normal Respiratory Effort Cardiovascular: Regular Rate, Regular Rhythm GI/Abdominal Exam: Normal Bowel Sounds, Soft, Non-Tender, No Organomegaly, No Distention Rectal Exam: Deferred Genitourinary: Normal external exam, Normal bimanual exam, Enlarged uterus Back Exam: Normal Inspection, Full Range of Motion Extremities: Normal Inspection, Normal Range of Motion, Non-Tender, No Pedal Edema, Normal Capillary Refill Skin: Warm, Dry, Intact Neurological: Cranial Nerves Intact, Reflexes Equal Bilateral Psychiatric: Alert, Normal Affect, Normal Mood - Patient Data Lab Results Last 24 hrs: Laboratory Results - last 24 hr 07/25/21 07/25/21 07/25/21 Range/Units 05:15 05:15 05:30 WBC 7.57 (4.0-11.0) K/uL RBC 3.81 L (4.30-5.90) M/uL Hgb 12.5 (12.0-16.0) g/dL Hct 36.2 (36.0-46.0) % MCV 95.0 (80.0-98.0) fL MCH 32.8 H (27.0-32.0) pg MCHC 34.5 (31.0-37.0) g/dL RDW Std Deviation 45.2 (28.0-62.0) fl RDW Coeff of Robin 13 (11.0-15.0) % Plt Count 219 (150-400) K/uL MPV 11.10 (7.40-12.00) fL Nucleated RBC % 0.0 /100WBC Nucleated RBCs # 0 K/uL SARS-CoV-2 RNA ([place]) NEGATIVE (NEGATIVE) Blood Type A NEGATIVE Antibody Screen POSITIVE Antibody Identification Anti-D Result Diagrams: 07/25/21 05:15 - Problem List (1) Encounter for elective induction of labor SNOMED Code(s): 616371957 ICD Code: Z34.90 - ENCNTR FOR SUPRVSN OF NORMAL , UNSP, UNSP TRIMESTER Status: Acute Priority: High Current Visit: Yes (2) 40 weeks gestation of SNOMED Code(s): 28788978 ICD Code: Z3A.40 - 40 WEEKS GESTATION OF Status: Acute Priority: High Current Visit: Yes Problem List Initiated/Reviewed/Updated: Yes Orders Last 24hrs: Active Orders 24 hr Category Date Time Status Admission Status [Patient Status] [ADT] Routine ADT 07/25/21 06:53 Active Bedrest Bathroom Privileges [RC] ASDIRECTED Care 07/25/21 05:45 Active Communication Order [RC] ASDIRECTED Care 07/25/21 05:45 Active Communication Order [RC] ASDIRECTED Care 07/25/21 05:45 Active Communication Order [RC] ASDIRECTED Care 07/25/21 05:45 Active May Shower [RC] ASDIRECTED Care 07/25/21 05:45 Active Notify Provider [RC] PRN Care 07/25/21 05:45 Active Notify Provider [RC] PRN Care 07/25/21 05:45 Active Notify Provider [RC] PRN Care 07/25/21 05:45 Active Notify Provider [RC] STAT Care 07/25/21 05:45 Active Oxygen Therapy [RC] ASDIRECTED Care 07/25/21 05:45 Active Up ad Yanet [RC] ASDIRECTED Care 07/25/21 05:45 Active VTE/DVT Education [RC] PER UNIT ROUTINE Care 07/25/21 05:44 Active Vital Signs [RC] PER UNIT ROUTINE Care 07/25/21 05:45 Active Vital Signs [RC] PER UNIT ROUTINE Care 07/25/21 05:45 Active Regular Diet [DIET] Diet 07/25/21 Breakfast Active RPR (SYPHILIS SERO) W/ RFLX [REF] Routine Lab 07/25/21 05:15 Received Acetaminophen [TylenoL] Med 07/25/21 05:44 Active 650 mg PO Q4H PRN Butorphanol [Stadol] Med 07/25/21 05:44 Active 1 mg IVPUSH Q1H PRN Carboprost Tromethamine [Hemabate DS] Med 07/25/21 05:44 Active 250 mcg IM ASDIRECTED PRN Lactated Ringers [Ringers, Lactated] 1,000 ml Med 07/25/21 05:45 Active IV ASDIRECTED Lidocaine 1% [Xylocaine 1%] Med 07/25/21 05:44 Active 50 ml INJECT ONETIME PRN Methylergonovine [Methergine] Med 07/25/21 05:44 Active 0.2 mg IM ASDIRECTED PRN Nalbuphine [Nubain] Med 07/25/21 05:44 Active 10 mg IVPUSH Q1H PRN Ondansetron [Zofran] Med 07/25/21 05:44 Active 4 mg IVPUSH Q4H PRN Oxytocin/0.9 % Sodium Chloride [Oxytocin 30 Unit in NS Med 07/25/21 05:45 Active 0.9% 500 ML Premix] 30 unit in 500 ml IV TITRATE Oxytocin/0.9 % Sodium Chloride [Oxytocin 30 Unit in NS Med 07/25/21 05:45 Active 0.9% 500 ML Premix] 30 unit in 500 ml IV TITRATE Sodium Chloride 0.9% [Normal Saline] Med 07/25/21 05:44 Active 10 ml IV ASDIRECTED PRN Sodium Chloride 0.9% [Saline Flush] Med 07/25/21 05:44 Active 10 ml FLUSH ASDIRECTED PRN Sodium Chloride 0.9% [Saline Flush] Med 07/25/21 05:44 Active 2.5 ml FLUSH ASDIRECTED PRN Terbutaline [Brethine] Med 07/25/21 05:44 Active 0.25 mg SUBCUT ASDIRECTED PRN Tranexamic Acid [Cyklokapron] 1,000 mg Med 07/25/21 05:44 Active Sodium Chloride 0.9% [Normal Saline] 100 ml IV ONETIME Water For Irrigation,Sterile [Sterile Water for Med 07/25/21 05:44 Active Irrigation] 1,000 ml IRR ASDIRECTED PRN hydrOXYzine HCL [Atarax] Med 07/25/21 05:44 Active 50 mg PO Q6H PRN miSOPROStoL [Cytotec] Med 07/25/21 05:44 Active 200 mcg PO ONETIME PRN miSOPROStoL [Cytotec] Med 07/25/21 08:00 Active 25 mcg PO Q4HR miSOPROStoL [Cytotec] Med 07/25/21 05:44 Active 25 mcg VAG Q4H PRN Scalp Electrode [WOMSER] Per Unit Routine Oth 07/25/21 05:45 Ordered Medication Administration Instruction [OM.PC] Q3H Oth 07/25/21 05:45 Ordered Peripheral IV Insertion Adult [OM.PC] Routine Oth 07/25/21 05:45 Ordered Resuscitation Status Routine Resus Stat 07/25/21 05:44 Ordered Medication Orders Acetaminophen (Acetaminophen 325 Mg Tab) 650 mg PO Q4H PRN PRN Reason: mild pain and fever Butorphanol Tartrate (Butorphanol 1 Mg/Ml Sdv) 1 mg IVPUSH Q1H PRN PRN Reason: Pain (severe 7-10) Carboprost Tromethamine (Carboprost Tromethamine 250 Mcg/1 Ml Amp) 250 mcg IM ASDIRECTED PRN PRN Reason: Post Hemorrhage Hydroxyzine HCl (Hydroxyzine Hcl 25 Mg Tab) 50 mg PO Q6H PRN PRN Reason: Itching Oxytocin/Sodium Chloride (Oxytocin 30 Unit In Ns 0.9% 500 Ml Premix) 30 unit in 500 mls @ 2 mls/hr IV TITRATE SUKHWINDER; Protocol Lactated Ringer's (Ringers, Lactated) 1,000 mls @ 150 mls/hr IV ASDIRECTED SUKHWINDER Oxytocin/Sodium Chloride (Oxytocin 30 Unit In Ns 0.9% 500 Ml Premix) 30 unit in 500 mls @ 999 mls/hr IV TITRATE SUKHWINDER Tranexamic Acid 1,000 mg/ (Sodium Chloride) 110 mls @ 660 mls/hr IV ONETIME PRN PRN Reason: Bleeding Lidocaine HCl (Lidocaine 1% 50 Ml Mdv) 50 ml INJECT ONETIME PRN PRN Reason: Laceration repair Methylergonovine Maleate (Methylergonovine 0.2 Mg/1 Ml Amp) 0.2 mg IM ASDIRECTED PRN PRN Reason: Post Hemorrhage Misoprostol (Misoprostol 25 Mcg (1/4 Of 100 Mcg) Tab) 25 mcg PO Q4HR SUKHWINDER Last Admin: 07/25/21 06:21 Dose: 25 mcg Documented by: BETZY Misoprostol (Misoprostol 25 Mcg (1/4 Of 100 Mcg) Tab) 25 mcg VAG Q4H PRN PRN Reason: Cervical Ripening Last Admin: 07/25/21 06:21 Dose: 25 mcg Documented by: BETZY Misoprostol (Misoprostol 200 Mcg Tab) 200 mcg PO ONETIME PRN PRN Reason: Post Hemorrhage Nalbuphine HCl (Nalbuphine 10 Mg/1 Ml Vial) 10 mg IVPUSH Q1H PRN PRN Reason: Pain (severe 7-10) Ondansetron HCl (Ondansetron 4 Mg/2 Ml Sdv) 4 mg IVPUSH Q4H PRN PRN Reason: Nausea/Vomiting Sodium Chloride (Sodium Chloride 0.9% 10 Ml Syringe) 10 ml FLUSH ASDIRECTED PRN PRN Reason: Keep Vein Open Sodium Chloride (Sodium Chloride 0.9% 2.5 Ml Syringe) 2.5 ml FLUSH ASDIRECTED PRN PRN Reason: Keep Vein Open Sodium Chloride (Sodium Chloride 0.9% 10 Ml Sdv) 10 ml IV ASDIRECTED PRN PRN Reason: IV Use Sterile Water (Water For Irrigation,Sterile 1,000 Ml Container) 1,000 ml IRR ASDIRECTED PRN PRN Reason: delivery Terbutaline Sulfate (Terbutaline 1 Mg/Ml Sdv) 0.25 mg SUBCUT ASDIRECTED PRN PRN Reason: Tacysystole Assessment/Plan Comment:: Admit to inpatient observation for elective IOL in anticipation of of viable, term . Regular diet. May ambulate after reactive NST is achieved, may intermittently monitor per orders. May receive epidural 5+ cm if desired. See new orders. Dr. Hart notified and agreeable with POC.
[2021-07-25] MEDS: Lactated Ringers 1,000 ML IV SCH ×2 (16:10→20:21)
[2021-07-25] MEDS ORDERED: Ropivacaine HCl/PF 200 ML ONE (17:06)
--- NOTE | 2021-07-25 19:02 | PCM.PREANE ---
Preanesthetic Assessment - Anesthesia/Transfusion/Family Hx Anesthesia History: Prior Anesthesia Without Reaction Family History of Anesthesia Reaction: No Transfusion History: No Prior Transfusion(s) Intubation History: Unknown - Review of Systems General: No Symptoms Pulmonary: No Symptoms, Other (Former Smoker 3 years ago) Cardiovascular: No Symptoms Gastrointestinal: No Symptoms, Other (GERD with ) Neurological: No Symptoms Other: Reports: None - Physical Assessment NPO Status Date: 07/25/21 NPO Status Time: 15:00 Height: 1.6 m Weight: 72.575 kg ASA Class: 2 Mental Status: Alert & Oriented x3 Airway Class: Mallampati = 2 Dentition: Reports: Normal Dentition Thyro-Mental Finger Breadths: 3 Mouth Opening Finger Breadths: 3 ROM/Head Extension: Full Lungs: Clear to Auscultation, Normal Respiratory Effort Cardiovascular: Regular Rate, Regular Rhythm - Lab Values: Laboratory Last Values WBC 7.57 K/uL (4.0-11.0) 07/25/21 05:15 RBC 3.81 M/uL (4.30-5.90) L 07/25/21 05:15 Hgb 12.5 g/dL (12.0-16.0) 07/25/21 05:15 Hct 36.2 % (36.0-46.0) 07/25/21 05:15 MCV 95.0 fL (80.0-98.0) 07/25/21 05:15 MCH 32.8 pg (27.0-32.0) H 07/25/21 05:15 MCHC 34.5 g/dL (31.0-37.0) 07/25/21 05:15 RDW Std Deviation 45.2 fl (28.0-62.0) 07/25/21 05:15 RDW Coeff of Robin 13 % (11.0-15.0) 07/25/21 05:15 Plt Count 219 K/uL (150-400) 07/25/21 05:15 MPV 11.10 fL (7.40-12.00) 07/25/21 05:15 Nucleated RBC % 0.0 /100WBC 07/25/21 05:15 Nucleated RBCs # 0 K/uL 07/25/21 05:15 SARS-CoV-2 RNA ([place]) NEGATIVE (NEGATIVE) 10/10/21 05:30 Blood Type A NEGATIVE 07/25/21 05:15 Antibody Screen POSITIVE 07/25/21 05:15 Antibody Identification Anti-D 07/25/21 05:15 - Allergies Allergies/Adverse Reactions: Allergies Allergy/AdvReac Type Severity Reaction Status Date / Time No Known Allergies Allergy Verified 07/25/21 06:22 - Blood Blood Available: Yes Product(s) Available: PRBC (Type and Screen) - Anesthesia Plan Pre-Op Medication Ordered: None - Acknowledgements Anesthesia Type Planned: Epidural Pt an Appropriate Candidate for the Planned Anesthesia: Yes Alternatives and Risks of Anesthesia Discussed w Pt/Guardian: Yes Pt/Guardian Understands and Agrees with Anesthesia Plan: Yes Additional Comments: Pt denies neurological disease, coagulopathy, use of blood thinners. PreAnesthesia Questionnaire - Past Health History Medical/Surgical History: Denies Medical/Surgical History HEENT History: Reports: None Cardiovascular History: Reports: None Respiratory History: Reports: None Gastrointestinal History: Reports: None Genitourinary History: Reports: None [employer] History: Reports: , Other (See Below) () Musculoskeletal History: Reports: None Neurological History: Reports: None Psychiatric History: Reports: Anxiety, Depression Endocrine/Metabolic History: Reports: None Hematologic History: Reports: None Immunologic History: Reports: None Oncologic (Cancer) History: Reports: None Dermatologic History: Reports: None - Infectious Disease History Infectious Disease History: Reports: None - Past Surgical History Head Surgeries/Procedures: Reports: None - HOME MEDS Home Medications: Home Meds Pnv No.95/Ferrous Fum/Folic AC [ Caplet] 1 each PO DAILY 06/18/19 [History] - CURRENT (IN HOUSE) MEDS Current Meds: Current Medications Acetaminophen (Acetaminophen 325 Mg Tab) 650 mg PO Q4H PRN PRN Reason: mild pain and fever Butorphanol Tartrate (Butorphanol 1 Mg/Ml Sdv) 1 mg IVPUSH Q1H PRN PRN Reason: Pain (severe 7-10) Carboprost Tromethamine (Carboprost Tromethamine 250 Mcg/1 Ml Amp) 250 mcg IM ASDIRECTED PRN PRN Reason: Post Hemorrhage Hydroxyzine HCl (Hydroxyzine Hcl 25 Mg Tab) 50 mg PO Q6H PRN PRN Reason: Itching Oxytocin/Sodium Chloride (Oxytocin 30 Unit In Ns 0.9% 500 Ml Premix) 30 unit in 500 mls @ 2 mls/hr IV TITRATE SUKHWINDER; Protocol Lactated Ringer's (Ringers, Lactated) 1,000 mls @ 150 mls/hr IV ASDIRECTED SUKHWINDER Last Admin: 07/25/21 16:10 Dose: 999 mls/hr Documented by: Oxytocin/Sodium Chloride (Oxytocin 30 Unit In Ns 0.9% 500 Ml Premix) 30 unit in 500 mls @ 999 mls/hr IV TITRATE SUKHWINDER Tranexamic Acid 1,000 mg/ (Sodium Chloride) 110 mls @ 660 mls/hr IV ONETIME PRN PRN Reason: Bleeding Lidocaine HCl (Lidocaine 1% 50 Ml Mdv) 50 ml INJECT ONETIME PRN PRN Reason: Laceration repair Methylergonovine Maleate (Methylergonovine 0.2 Mg/1 Ml Amp) 0.2 mg IM ASDIRECTED PRN PRN Reason: Post Hemorrhage Misoprostol (Misoprostol 25 Mcg (1/4 Of 100 Mcg) Tab) 25 mcg PO Q4HR ON LICENSE OF [facility] Last Admin: 07/25/21 06:21 Dose: 25 mcg Documented by: Misoprostol (Misoprostol 25 Mcg (1/4 Of 100 Mcg) Tab) 25 mcg VAG Q4H PRN PRN Reason: Cervical Ripening Last Admin: 07/25/21 06:21 Dose: 25 mcg Documented by: Misoprostol (Misoprostol 200 Mcg Tab) 200 mcg PO ONETIME PRN PRN Reason: Post Hemorrhage Nalbuphine HCl (Nalbuphine 10 Mg/1 Ml Vial) 10 mg IVPUSH Q1H PRN PRN Reason: Pain (severe 7-10) Ondansetron HCl (Ondansetron 4 Mg/2 Ml Sdv) 4 mg IVPUSH Q4H PRN PRN Reason: Nausea/Vomiting Sodium Chloride (Sodium Chloride 0.9% 10 Ml Syringe) 10 ml FLUSH ASDIRECTED PRN PRN Reason: Keep Vein Open Sodium Chloride (Sodium Chloride 0.9% 2.5 Ml Syringe) 2.5 ml FLUSH ASDIRECTED PRN PRN Reason: Keep Vein Open Sodium Chloride (Sodium Chloride 0.9% 10 Ml Sdv) 10 ml IV ASDIRECTED PRN PRN Reason: IV Use Sterile Water (Water For Irrigation,Sterile 1,000 Ml Container) 1,000 ml IRR ASDIRECTED PRN PRN Reason: delivery Terbutaline Sulfate (Terbutaline 1 Mg/Ml Sdv) 0.25 mg SUBCUT ASDIRECTED PRN PRN Reason: Tacysystole Discontinued Medications Ropivacaine (Naropin 0.2%) Confirm Administered Dose 200 mls @ as directed .[facility] Stop: 07/25/21 17:07
[2021-07-25] MEDS ORDERED: ePHEDrine 50 MG/ML SDV IVPUSH PRN (19:07)
--- NOTE | 2021-07-25 19:07 | PCM.SN.2 ---
Time Documentation - Pre-Procedure Checklist Attending Provider Aware: Yes Chart Reviewed: Yes Consent Signed: Yes Labs Reviewed: Yes VS/FHR Reviewed: Yes Patient Identification Confirmation Method: Reports: Chart Visual, Verbal Patient Pt an Appropriate Candidate for the Planned Anesthesia: Yes Alternatives and Risks of Anesthesia Discussed w Pt/Guardian: Yes - Procedure Procedure Start Date: 07/25/21 Procedure Start Time: 16:[address]: Reports: Blood Pressure, Heart Rate, SPO2 Functional IV: Yes Bolus Infused (fluid type and amount): 1000ml LR Safety Measures: Reports: Patient Identified, Procedure Verified, Site Verified, Procedure Time Out Patient Position: Reports: Sitting Prep: Reports: Betadine x3 Local Anesthetic: Reports: Intradermal Wheal w Lidocaine 1%, Other (3 ML) Regional Placement Level: Reports: L3-4 Needle: Reports: 17 g Touhy Approach: Reports: Midline Technique: Reports: DEMARIO Glass Syringe DEMARIO Needle Depth (cm): 6 cm Parasthesia: Reports: None Fluid Obtained: Reports: None Catheter Depth at Skin (cm): 15 cm Test Dose Time: 17:01 Test Dose Medication: Reports: Lidocaine 1.5% w Epinephrine 1:200,000 Test Dose Response: Reports: Negative Loading Dose Time: 17:14 Loading Dose Medication: 0.2% Ropivicaine 6 ML Loading Dose Patient Position: Supine Continuous Infusion Start Time: 17:15 Continuous Infusion Medication: Ropivicaine 0.2% Continuous Infusion Rate: 10 Continuous Infusion PCS Bolus Option: 4 Continuous Infusion Lockout Dose (cc/hr): 20 Patient Position Post Placement: Reports: Supline/DENZEL Post-procedure Pain Level: 3 Level Achieved: T4 VS and FHR Monitored in Unit Post Placement: Yes Procedure End Date: 07/25/21 Procedure End Time: 17:15 Procedure Comment: Sterile technique used throughout.
--- NOTE | 2021-07-25 19:07 | PCM.POSTAN ---
POST ANESTHESIA ASSESSMENT - MENTAL STATUS Mental Status: Alert, Oriented - RESPIRATORY Respiratory Status: Respiratory Rate WNL, Airway Patent, O2 Saturation Stable - CARDIOVASCULAR CV Status: Pulse Rate WNL, Blood Pressure Stable - GASTROINTESTINAL GI Status: No Symptoms - PAIN Pain Score: 3 - POST OP HYDRATION Hydration Status: Adequate & Stable
[2021-07-25] MEDS ORDERED: Ropivacaine/PF 400 MG/200 ML PCA EPIDUR SCH (19:15)
[2021-07-25] MEDS ORDERED: Witch Hazel Medicated Pads 40/Jar TOP PRN (23:34)
[2021-07-25] MEDS ORDERED: Benzocaine/Menthol 20%-0.5% Spray 78 GM Cannister TOP PRN (23:34)
[2021-07-25] MEDS ORDERED: Bisacodyl 10 MG Supp RECTAL PRN (23:34)
[2021-07-25] MEDS ORDERED: Ibuprofen 400 MG Tab PO PRN (23:34)
[2021-07-25] MEDS ORDERED: Docusate Sodium 100 MG Cap PO PRN (23:34)
[2021-07-25] MEDS ORDERED: oxyCODONE 5 MG Tab PO PRN (23:34)
[2021-07-25] MEDS ORDERED: Acetaminophen 500 MG Tab PO PRN (23:34)
[2021-07-25] MEDS ORDERED: Lanolin 100% Cream 7 GM Tube TOP PRN (23:34)
--- NOTE | 2021-07-25 23:45 | PCM.DEL ---
L & D Note - General Info Date of Service: 07/25/21 Mother's Due Date: 07/23/21 - Delivery Note Labor: Augmented by ARM, Augmented by Oxytocin Cervical Ripening Method: Misoprostil Delivery Outcome: Livebirth Infant Delivery Method: Spontaneous Vaginal Delivery-Single Delivery Mode: Spontaneous Presentation: Left Occiput Anterior (MOR) Nuchal Cord: None Anesthesia Type: Epidural Amniotic Fluid Description: Clear Episiotomy Type: None Laceration: None Placenta: Intact, Spontaneous Cord: 3 Vessels Estimated Blood Loss: 300 Resuscitation Needed: Yes [place]: Stimulated, Warmed, [place] Used Score 1 min: 8 Score 5 min: 9 Second Stage Interventions: Reports: Encouragement Given, Pushing Effectively, Pushing, Pulls Own Legs Back Delivery Comments (Free Text/Narrative):: Bettie is a 26 yo current at 40+2 weeks gestation (DK(LMP) 07/23/2021) immediately s/p following elective IOL with misoprostol cervical ripening and AROM + pitocin augmentation. A neg, Ab screen neg, RI, GBS neg. Prophylactic RhoGam adminiseed 05/07/2021. BLE epidural in place, pain well controlled. head birthed easily MOR with body immediately following with next push. NBF placed to maternal abdomen skin to skin, warmed, dried, stimulated with spontaneous cries immediately following . IV pitocin bolus started for active third stage management. Placenta birthed ~11 min s/p NBF, intact, [place], 3VC. Uterus firm U-1, scant to small rubra lochia, no clots. Perineum intact. APGARS 8/9. weight 7 lb 0 oz (3170 g). - General Info Date of Service: 07/25/21 Admission Dx/Problem (Free Text): Patient Status Order with Admit Dx/Problem 07/25/21 05:45 Patient Status [ADT] Routine 07/25/21 06:53 Admission Status [Patient Status] [ADT] Routine Admission Diagnosis/Problem Admission Diagnosis/Problem 07/25/21 12:02 Bettie is a 26 yo at 40+2 weeks gestation (DK(LMP) 07/23/2021) that presents today for elective IOL, RBAs including cervical ripening techniques discussed and consents signed in office 07/20/2021 with Imelda Mejia CNM. A neg, Ab screen neg, RI, GBS neg. Prophylactic RhoGam adminiseed 05/07/2021. Reports + FM; denies contractions, LOF, vaginal bleeding at this time. Unremarkable course. Patient confirmed vertex via SVE, confirms she continues to desire elective IOL. Functional Status: Reports: Pain Controlled - Review of Systems General: Reports: No Symptoms HEENT: Reports: No Symptoms Pulmonary: Reports: No Symptoms Cardiovascular: Reports: No Symptoms Gastrointestinal: Reports: No Symptoms Genitourinary: Reports: No Symptoms Musculoskeletal: Reports: No Symptoms Skin: Reports: No Symptoms Neurological: Reports: No Symptoms Psychiatric: Reports: No Symptoms - Patient Data Vitals - Most Recent: VSS, afebrile. See flowsheet. Weight - Most Recent: 160 lb Lab Results Last 24 Hours: Laboratory Results - last 24 hr 07/25/21 07/25/21 07/25/21 Range/Units 05:15 05:15 05:30 WBC 7.57 (4.0-11.0) K/uL RBC 3.81 L (4.30-5.90) M/uL Hgb 12.5 (12.0-16.0) g/dL Hct 36.2 (36.0-46.0) % MCV 95.0 (80.0-98.0) fL MCH 32.8 H (27.0-32.0) pg MCHC 34.5 (31.0-37.0) g/dL RDW Std Deviation 45.2 (28.0-62.0) fl RDW Coeff of Robin 13 (11.0-15.0) % Plt Count 219 (150-400) K/uL MPV 11.10 (7.40-12.00) fL Nucleated RBC % 0.0 /100WBC Nucleated RBCs # 0 K/uL SARS-CoV-2 RNA ([place]) NEGATIVE (NEGATIVE) Blood Type A NEGATIVE Antibody Screen POSITIVE Antibody Identification Anti-D Med Orders - Current: Current Medications Discontinued Medications Acetaminophen (Acetaminophen 325 Mg Tab) 650 mg PO Q4H PRN PRN Reason: mild pain and fever Butorphanol Tartrate (Butorphanol 1 Mg/Ml Sdv) 1 mg IVPUSH Q1H PRN PRN Reason: Pain (severe 7-10) Carboprost Tromethamine (Carboprost Tromethamine 250 Mcg/1 Ml Amp) 250 mcg IM ASDIRECTED PRN PRN Reason: Post Hemorrhage Ephedrine Sulfate (Ephedrine 50 Mg/Ml Sdv) 10 mg IVPUSH Q1M PRN PRN Reason: Hypotension Hydroxyzine HCl (Hydroxyzine Hcl 25 Mg Tab) 50 mg PO Q6H PRN PRN Reason: Itching Oxytocin/Sodium Chloride (Oxytocin 30 Unit In Ns 0.9% 500 Ml Premix) 30 unit in 500 mls @ 2 mls/hr IV TITRATE SUKHWINDER; Protocol Last Titration: 07/25/21 22:19 Dose: 8 munits/min, 8 mls/hr Documented by: Lactated Ringer's (Ringers, Lactated) 1,000 mls @ 150 mls/hr IV ASDIRECTED SUKHWINDER Last Admin: 07/25/21 20:21 Dose: 150 mls/hr Documented by: Oxytocin/Sodium Chloride (Oxytocin 30 Unit In Ns 0.9% 500 Ml Premix) 30 unit in 500 mls @ 999 mls/hr IV TITRATE SUKHWINDER Tranexamic Acid 1,000 mg/ (Sodium Chloride) 110 mls @ 660 mls/hr IV ONETIME PRN PRN Reason: Bleeding Ropivacaine (Naropin 0.2%) Confirm Administered Dose 200 mls @ as directed .R[facility] .[facility] ONE Stop: 07/25/21 17:07 Lidocaine HCl (Lidocaine 1% 50 Ml Mdv) 50 ml INJECT ONETIME PRN PRN Reason: Laceration repair Methylergonovine Maleate (Methylergonovine 0.2 Mg/1 Ml Amp) 0.2 mg IM ASDIRECTED PRN PRN Reason: Post Hemorrhage Miscellaneous Medication (Phenylephrine Hcl In 0.9% Nacl 1 Mg/10 Ml Syringe) 0.1 mg IVPUSH Q1M PRN PRN Reason: Hypotension Misoprostol (Misoprostol 25 Mcg (1/4 Of 100 Mcg) Tab) 25 mcg PO Q4HR SUKHWINDER Last Admin: 07/25/21 06:21 Dose: 25 mcg Documented by: Misoprostol (Misoprostol 25 Mcg (1/4 Of 100 Mcg) Tab) 25 mcg VAG Q4H PRN PRN Reason: Cervical Ripening Last Admin: 07/25/21 06:21 Dose: 25 mcg Documented by: Misoprostol (Misoprostol 200 Mcg Tab) 200 mcg PO ONETIME PRN PRN Reason: Post Hemorrhage Nalbuphine HCl (Nalbuphine 10 Mg/1 Ml Vial) 10 mg IVPUSH Q1H PRN PRN Reason: Pain (severe 7-10) Ondansetron HCl (Ondansetron 4 Mg/2 Ml Sdv) 4 mg IVPUSH Q4H PRN PRN Reason: Nausea/Vomiting Ropivacaine (Ropivacaine/Pf 400 Mg/200 Ml Flight Deck Officer) 400 mg EPIDUR ASDIRECTED SUKHWINDER Sodium Chloride (Sodium Chloride 0.9% 10 Ml Syringe) 10 ml FLUSH ASDIRECTED PRN PRN Reason: Keep Vein Open Sodium Chloride (Sodium Chloride 0.9% 2.5 Ml Syringe) 2.5 ml FLUSH ASDIRECTED PRN PRN Reason: Keep Vein Open Sodium Chloride (Sodium Chloride 0.9% 10 Ml Sdv) 10 ml IV ASDIRECTED PRN PRN Reason: IV Use Sterile Water (Water For Irrigation,Sterile 1,000 Ml Container) 1,000 ml IRR ASDIRECTED PRN PRN Reason: delivery Terbutaline Sulfate (Terbutaline 1 Mg/Ml Sdv) 0.25 mg SUBCUT ASDIRECTED PRN PRN Reason: Tacysystole - Exam General: Alert, Oriented, Cooperative, No Acute Distress HEENT: Pupils Equal, Mucous Membr. Moist/[place] Neck: Supple Lungs: Clear to Auscultation, Normal Respiratory Effort Cardiovascular: Regular Rate, Regular Rhythm GI/Abdominal Exam: Normal Bowel Sounds, Soft, Non-Tender, No Organomegaly, No Distention (Female) Exam: Normal External Exam, Enlarged Uterus ( uterus, firm U-1), Vaginal Bleeding (Scant to small rubra lochia, no clots.) Back Exam: Normal Inspection, Full Range of Motion Extremities: Normal Inspection, Normal Range of Motion, Non-Tender, No Pedal Edema, Normal Capillary Refill Skin: Warm, Dry, Intact Neurological: No New Focal Deficit (BLE epidural intact, pain well controlled.) Psy/Mental Status: Alert, Normal Affect, Normal Mood - Problem List & Annotations (1) (spontaneous vaginal delivery) SNOMED Code(s): 516034233 Code(s): O80 - ENCOUNTER FOR FULL-TERM UNCOMPLICATED DELIVERY Status: Acute Priority: High Current Visit: Yes (2) Lactating mother SNOMED Code(s): 164687806, 485155055 Code(s): Z39.1 - ENCOUNTER FOR CARE AND EXAMINATION OF LACTATING MOTHER Status: Acute Priority: High Current Visit: Yes - Problem List Review Problem List Initiated/Reviewed/Updated: Yes - My Orders Last 24 Hours: My Active Orders 07/25/21 Dinner Regular Diet [DIET] 07/25/21 23:34 Patient Status [ADT] Routine May Shower [RC] ASDIRECTED Up ad [place] [RC] ASDIRECTED Vital Signs [RC] PER UNIT ROUTINE Acetaminophen [Tylenol Extra Strength] 1,000 mg PO Q4H PRN Acetaminophen [Tylenol Extra Strength] 500 mg PO Q4H PRN Benzocaine/Menthol [Dermoplast Pain Relief 20%-0.5% [place]] 78 gm TOP ASDIRECTED PRN Docusate Sodium [Colace] 100 mg PO Q12H PRN Ibuprofen [Motrin] 400 mg PO Q4H PRN Ibuprofen [Motrin] 800 mg PO Q6H PRN Lanolin [Lansinoh HPA] See Dose Instructions TOP ASDIRECTED PRN bisacodyL [Dulcolax] 10 mg RECTAL ONETIME PRN oxyCODONE 5 mg PO Q2H PRN witch [place]irmala [Tucks] 1 pad TOP ASDIRECTED PRN Assess Lochia [WOMSER] Per Unit Routine Assess Uterine Involution [WOMSER] Per Unit Routine Ice Therapy [OM.PC] Per Unit Routine Perineal Care [OM.PC] Per Unit Routine Peripheral IV Discontinue [OM.PC] Routine Sitz Bath [OM.PC] Per Unit Routine Resuscitation Status Routine 07/25/21 23:35 Cooling Warming Measures [RC] ASDIRECTED - Plan Plan:: Admit to inpatient unit immediately s/p of viable, term following elective IOL with misoprostol cervical ripening and AROM+pitocin augmentation. Resume regular diet. D/C epidural now. May ambulate within 2-4 hours with assistance once sensation returns. If patient has not voided within 6 hours, may I&O cath once and call provider. See new orders. Dr. Hart notified and agreeable with POC.
[2021-07-26] MEDS: Acetaminophen 500 MG Tab PO PRN ×2 (01:31→10:09)
[2021-07-26] MEDS: Ibuprofen 800 MG Tab PO PRN ×3 (01:32→20:21)
--- NOTE | 2021-07-26 04:33 | PCM.PNPP ---
- General Info Date of Service: 07/26/21 Admission Dx/Problem (Free Text): Patient Status Order with Admit Dx/Problem 07/25/21 05:45 Patient Status [ADT] Routine 07/25/21 06:53 Admission Status [Patient Status] [ADT] Routine Admission Diagnosis/Problem Admission Diagnosis/Problem 07/25/21 12:02 Bettie is a 26 yo at 40+2 weeks gestation (DK(LMP) 07/23/2021) that presents today for elective IOL, RBAs including cervical ripening techniques discussed and consents signed in office 07/20/2021 with Imelda Mejia CNM. A neg, Ab screen neg, RI, GBS neg. Prophylactic RhoGam adminiseed 05/07/2021. Reports + FM; denies contractions, LOF, vaginal bleeding at this time. Unremarkable course. Patient confirmed vertex via SVE, confirms she continues to desire elective IOL. Subjective Update: Bettie is a 26 yo current PPD 0 s/p at 40+2 weeks gestation (DK(LMP) 07/23/2021) following elective IOL with misoprostol cervical ripening and AROM + pitocin augmentation. A neg/A neg, Ab screen positive for D ab consistent with RhoGam RI, GBS neg. Currently resting in bed, in arms latched to right breast. Independently eating, hydrating, voiding, and ambulating. Breast fee ding well, no problems. Denies any complaints or concerns at this time except mild to moderate intermittent uterine cramping relieved with ibuprofen. Reports small vaginal bleeding, no clots. No other problems or concerns at this time. Functional Status: Reports: Pain Controlled, Tolerating Diet, Ambulating, Urinating - Review of Systems General: Reports: No Symptoms HEENT: Reports: No Symptoms Pulmonary: Reports: No Symptoms Cardiovascular: Reports: No Symptoms Gastrointestinal: Reports: No Symptoms Genitourinary: Reports: No Symptoms Musculoskeletal: Reports: No Symptoms Skin: Reports: No Symptoms Neurological: Reports: No Symptoms Psychiatric: Reports: No Symptoms - General Info Date of Service: 07/26/21 - Patient Data Vital Signs - Most Recent: VSS, afebrile Weight - Most Recent: 160 lb I&O - Last 24 Hours: Intake & Output 07/25/21 07/25/21 07/26/21 14:59 22:59 06:59 Intake Total 500 Balance 500 Lab Results - Last 24 Hours: Laboratory Results - last 24 hr 07/25/21 07/25/21 07/25/21 Range/Units 05:15 05:15 05:30 WBC 7.57 (4.0-11.0) K/uL RBC 3.81 L (4.30-5.90) M/uL Hgb 12.5 (12.0-16.0) g/dL Hct 36.2 (36.0-46.0) % MCV 95.0 (80.0-98.0) fL MCH 32.8 H (27.0-32.0) pg MCHC 34.5 (31.0-37.0) g/dL RDW Std Deviation 45.2 (28.0-62.0) fl RDW Coeff of Robin 13 (11.0-15.0) % Plt Count 219 (150-400) K/uL MPV 11.10 (7.40-12.00) fL Nucleated RBC % 0.0 /100WBC Nucleated RBCs # 0 K/uL SARS-CoV-2 RNA ([place]) NEGATIVE (NEGATIVE) Blood Type A NEGATIVE Antibody Screen POSITIVE Antibody Identification Anti-D Med Orders - Current: Current Medications Acetaminophen (Acetaminophen 500 Mg Tab) 500 mg PO Q4H PRN PRN Reason: Pain (mild 1-3) Acetaminophen (Acetaminophen 500 Mg Tab) 1,000 mg PO Q4H PRN PRN Reason: Pain (mild 1-3) Last Admin: 07/26/21 01:31 Dose: 1,000 mg Documented by: Benzocaine/Menthol (Benzocaine/Menthol 20%-0.5% [place] 78 Gm Cannister) 78 gm TOP ASDIRECTED PRN PRN Reason: Perineal Comfort Measure Bisacodyl (Bisacodyl 10 Mg Supp) 10 mg RECTAL ONETIME PRN PRN Reason: Constipation Docusate Sodium (Docusate Sodium 100 Mg Cap) 100 mg PO Q12H PRN PRN Reason: Constipation Emollient Ointment (Lanolin 100% Cream 7 Gm Tube) 0 gm TOP ASDIRECTED PRN PRN Reason: Sore Nipples Ibuprofen (Ibuprofen 400 Mg Tab) 400 mg PO Q4H PRN PRN Reason: Pain (mild 1-3) Ibuprofen (Ibuprofen 800 Mg Tab) 800 mg PO Q6H PRN PRN Reason: Cramping Last Admin: 07/26/21 01:32 Dose: 800 mg Documented by: Oxycodone HCl (Oxycodone 5 Mg Tab) 5 mg PO Q2H PRN PRN Reason: Pain (severe 7-10) Witch [place] (Witch [place] Medicated Pads 40/Jar) 1 pad TOP ASDIRECTED PRN PRN Reason: comfort care Discontinued Medications Acetaminophen (Acetaminophen 325 Mg Tab) 650 mg PO Q4H PRN PRN Reason: mild pain and fever Butorphanol Tartrate (Butorphanol 1 Mg/Ml Sdv) 1 mg IVPUSH Q1H PRN PRN Reason: Pain (severe 7-10) Carboprost Tromethamine (Carboprost Tromethamine 250 Mcg/1 Ml Amp) 250 mcg IM ASDIRECTED PRN PRN Reason: Post Hemorrhage Ephedrine Sulfate (Ephedrine 50 Mg/Ml Sdv) 10 mg IVPUSH Q1M PRN PRN Reason: Hypotension Hydroxyzine HCl (Hydroxyzine Hcl 25 Mg Tab) 50 mg PO Q6H PRN PRN Reason: Itching Oxytocin/Sodium Chloride (Oxytocin 30 Unit In Ns 0.9% 500 Ml Premix) 30 unit in 500 mls @ 2 mls/hr IV TITRATE SUKHWINDER; Protocol Last Titration: 07/25/21 23:23 Dose: 500 munits/min, 500 mls/hr Documented by: Lactated Ringer's (Ringers, Lactated) 1,000 mls @ 150 mls/hr IV ASDIRECTED SUKHWINDER Last Admin: 07/25/21 20:21 Dose: 150 mls/hr Documented by: Oxytocin/Sodium Chloride (Oxytocin 30 Unit In Ns 0.9% 500 Ml Premix) 30 unit in 500 mls @ 999 mls/hr IV TITRATE SUKHWINDER Tranexamic Acid 1,000 mg/ (Sodium Chloride) 110 mls @ 660 mls/hr IV ONETIME PRN PRN Reason: Bleeding Ropivacaine (Naropin 0.2%) Confirm Administered Dose 200 mls @ as directed .[facility] Stop: 07/25/21 17:07 Lidocaine HCl (Lidocaine 1% 50 Ml Mdv) 50 ml INJECT ONETIME PRN PRN Reason: Laceration repair Methylergonovine Maleate (Methylergonovine 0.2 Mg/1 Ml Amp) 0.2 mg IM ASDIRECTED PRN PRN Reason: Post Hemorrhage Miscellaneous Medication (Phenylephrine Hcl In 0.9% Nacl 1 Mg/10 Ml Syringe) 0.1 mg IVPUSH Q1M PRN PRN Reason: Hypotension Misoprostol (Misoprostol 25 Mcg (1/4 Of 100 Mcg) Tab) 25 mcg PO Q4HR SUKHWINDER Last Admin: 07/25/21 06:21 Dose: 25 mcg Documented by: Misoprostol (Misoprostol 25 Mcg (1/4 Of 100 Mcg) Tab) 25 mcg VAG Q4H PRN PRN Reason: Cervical Ripening Last Admin: 07/25/21 06:21 Dose: 25 mcg Documented by: Misoprostol (Misoprostol 200 Mcg Tab) 200 mcg PO ONETIME PRN PRN Reason: Post Hemorrhage Nalbuphine HCl (Nalbuphine 10 Mg/1 Ml Vial) 10 mg IVPUSH Q1H PRN PRN Reason: Pain (severe 7-10) Ondansetron HCl (Ondansetron 4 Mg/2 Ml Sdv) 4 mg IVPUSH Q4H PRN PRN Reason: Nausea/Vomiting Ropivacaine (Ropivacaine/Pf 400 Mg/200 Ml Xerox Machine Operator) 400 mg EPIDUR ASDIRECTED SUKHWINDER Sodium Chloride (Sodium Chloride 0.9% 10 Ml Syringe) 10 ml FLUSH ASDIRECTED PRN PRN Reason: Keep Vein Open Sodium Chloride (Sodium Chloride 0.9% 2.5 Ml Syringe) 2.5 ml FLUSH ASDIRECTED PRN PRN Reason: Keep Vein Open Sodium Chloride (Sodium Chloride 0.9% 10 Ml Sdv) 10 ml IV ASDIRECTED PRN PRN Reason: IV Use Sterile Water (Water For Irrigation,Sterile 1,000 Ml Container) 1,000 ml IRR ASDIRECTED PRN PRN Reason: delivery Terbutaline Sulfate (Terbutaline 1 Mg/Ml Sdv) 0.25 mg SUBCUT ASDIRECTED PRN PRN Reason: Tacysystole - Interaction Infant Disposition, : [place] at Bedside Infant Interaction: Holding Infant Infant Feeding: Breastfed ; Nursed Well, Continues to Breastfeed, Encouraged to Breastfeed Support Person: Significant Other - Recovery Exam Fundal Level: At Umbilicus Fundal Placement: Midline Lochia Amount: Small Lochia Color: Rubra/Red Perineum Description: Edematous Episiotomy/Laceration: None Bladder Status: Voiding Urinary Elimination: Voided - Exam General: Alert, Oriented, Cooperative, No Acute Distress HEENT: Pupils Equal, Mucous Membr. Moist/[place] Neck: Supple Lungs: Clear to Auscultation, Normal Respiratory Effort Cardiovascular: Regular Rate, Regular Rhythm GI/Abdominal Exam: Normal Bowel Sounds, Soft, Non-Tender, No Organomegaly, No Distention Extremities: Normal Inspection, Normal Range of Motion, Non-Tender, No Pedal Edema, Normal Capillary Refill Skin: Warm, Dry, Intact Neurological: No New Focal Deficit Psy/Mental Status: Alert, Normal Affect, Normal Mood - Problem List & Annotations (1) (spontaneous vaginal delivery) SNOMED Code(s): 480429846 Code(s): O80 - ENCOUNTER FOR FULL-TERM UNCOMPLICATED DELIVERY Status: Acute Priority: High Current Visit: Yes (2) Lactating mother SNOMED Code(s): 534955874, 294547057 Code(s): Z39.1 - ENCOUNTER FOR CARE AND EXAMINATION OF LACTATING MOTHER Status: Acute Priority: High Current Visit: Yes - Problem List Review Problem List Initiated/Reviewed/Updated: Yes - My Orders Last 24 Hours: My Active Orders 07/25/21 Dinner Regular Diet [DIET] 07/25/21 23:34 Patient Status [ADT] Routine May Shower [RC] ASDIRECTED Up ad [place] [RC] ASDIRECTED Vital Signs [RC] PER UNIT ROUTINE Acetaminophen [Tylenol Extra Strength] 1,000 mg PO Q4H PRN Acetaminophen [Tylenol Extra Strength] 500 mg PO Q4H PRN Benzocaine/Menthol [Dermoplast Pain Relief 20%-0.5% [place]] 78 gm TOP ASDIRECTED PRN Docusate Sodium [Colace] 100 mg PO Q12H PRN Ibuprofen [Motrin] 400 mg PO Q4H PRN Ibuprofen [Motrin] 800 mg PO Q6H PRN Lanolin [Lansinoh HPA] See Dose Instructions TOP ASDIRECTED PRN bisacodyL [Dulcolax] 10 mg RECTAL ONETIME PRN oxyCODONE 5 mg PO Q2H PRN witch [place] [Tucks] 1 pad TOP ASDIRECTED PRN Assess Lochia [WOMSER] Per Unit Routine Assess Uterine Involution [WOMSER] Per Unit Routine Ice Therapy [OM.PC] Per Unit Routine Perineal Care [OM.PC] Per Unit Routine Peripheral IV Discontinue [OM.PC] Routine Sitz Bath [OM.PC] Per Unit Routine Resuscitation Status Routine 07/25/21 23:35 Cooling Warming Measures [RC] ASDIRECTED - Plan Plan:: Continue inpatient course of care PPD 0 s/p of viable, term following elective IOL with misoprostol cervical ripening and AROM+pitocin augmentation. Continue regular diet. Plan to ambulate 3-5 times daily. See new orders. Dr. Hart notified and agreeable with POC.
--- NOTE | 2021-07-26 11:00 | PCM48HPAN ---
Post Anesthesia Note - EVALUATION WITHIN 48HRS OF ANESTHETIC Vital Signs in Normal Range: Yes Patient Participated in Evaluation: Yes Respiratory Function Stable: Yes Airway Patent: Yes Cardiovascular Function Stable: Yes Hydration Status Stable: Yes Pain Control Satisfactory: Yes Nausea and Vomiting Control Satisfactory: Yes Mental Status Recovered: Yes Vital Signs: Last Vital Signs Temp 36.5 C 07/26/21 08:00 Pulse 56 L 07/26/21 08:00 Resp 16 07/26/21 08:00 BP 121/71 07/26/21 08:00 Pulse Ox 100 07/26/21 08:00 - COMMENTS/OBSERVATIONS Free Text/Narrative:: pt states to being up and walking with no problems
== END 2021-07-27 01:50 | disposition home or self-care (01) | DRG 807 ==
LOC: MW.OBCHECK 05:00 → MW.OB 06:53 → OBSVTOIN 23:12 → MW.OB 07-26 03:05
PROVIDERS: ADMIT Obstetrics & Gynecology; ATTEND Obstetrics & Gynecology
PROC: 10E0XZZ Delivery of Products of Conception, External Approach (ICD-10-PCS; principal; 2021-07-25)
PROC: 10907ZC Drainage of Amniotic Fluid, Therapeutic from Products of Conception, Via Natural or Artificial Opening (ICD-10-PCS; 2021-07-25)
PROC: 3E0P7VZ Introduction of Hormone into Female Reproductive, Via Natural or Artificial Opening (ICD-10-PCS; 2021-07-25)
PROC: 3E0R3BZ Introduction of Anesthetic Agent into Spinal Canal, Percutaneous Approach (ICD-10-PCS; 2021-07-25)
PROC: 00HU33Z Insertion of Infusion Device into Spinal Canal, Percutaneous Approach (ICD-10-PCS; 2021-07-25)
DX: O48.0 Post-term pregnancy (principal); Z37.0 Single live birth; Z20.822 Contact with and (suspected) exposure to COVID-19; Z3A.40 40 weeks gestation of pregnancy
CPT/HCPCS: 01967; 36415; 51702; 59025; 59409; 85027; 86592; 86850; 86870; 86900; 86901; A9270-GY; J2590; J2795; J7120; U0002